=== PATIENT | female | born 1950 | race Caucasian/White ===

== ENCOUNTER 2020-02-28 13:22 | Outpatient (CLI) | payer MEDICARE, SELFPAY ==
--- NOTE | 2020-02-28 13:38 | XR_ITS ---
WS: [id number] EXAM: LEFT FOOT: 3 VIEWS DATE OF EXAMINATION: 02/28/2020, 1417 hours COMPARISON: None. HISTORY: 69 years old with foot pain status post fall. Redness and swelling to the foot. FINDINGS: Bone density is decreased. There are findings of slight arthritis at the first metatarsal phalangeal joint with slight bunion formation off the first metatarsal head without extensive hallux valgus defo rmity. No acute fracture is identified. Heel spur plantar aponeurosis insertion. Slight dorsal soft t issue swelling as well as soft tissue swelling of the lower leg demonstrated. Calcifications is soft tissue in the lower leg anteriorly most likely related to venous stasis changes. XR/XR foot LT min 3V* [id number] IMPRESSION: Scattered changes of arthritis as described. Soft tissue edema. No acute bony a bnormality.
--- NOTE | 2020-02-28 13:38 | USCV_ITS ---
Kalani Tate Age: 69 Gender: F : 1950 Exam Date: 02/28/2020 13:52 Ordering Phys: More Guerrero Technologist: MONICA LITTLEJOHN Exam Location: [facility] [place]_ Indication: fall PROCEDURES: Venous duplex imaging was performed in only the left lower extremity. The following venous structures were evaluated: common femoral vein, profunda vein, proximal portion of the greater saphenous vein, superficial femoral vein, and the popliteal vein. In addition, the posterior tibial and peroneal trunk were evaluated. Serial compression, augmentation maneuvers, and spectral Doppler flow evaluation were performed. FINDINGS: Normal 2-D Doppler and augmentation and compressibility throughout the lower extremity venous structures. Additional imaging through the proximal calf veins also reveals no thrombus. Limited evaluation of the greater saphenous vein is patent with no thrombus.. In the area of the left medial ankle there is shadowing noted which is probably calcum. Complex elongated fluid collection posterior to the knee measures 5 x 4 cm, nonvascular. CONCLUSIONS No DVT left lower extremity. Resolving hematoma vs Bakers cyst. Dr. Padmini Mcdermott DO (Electronically Signed) Final Date: 28 February 2020 15:07 S
== END 2020-02-28 13:23 | disposition home or self-care (01) ==
LOC: RAD 13:32
PROVIDERS: PCP Registered Nurse; Visit Provider Registered Nurse
DX: M79.672 Pain in left foot (principal); L03.116 Cellulitis of left lower limb; S80.12XA Contusion of left lower leg, initial encounter; W19.XXXA Unspecified fall, initial encounter
CPT/HCPCS: 73630; 93971

== ENCOUNTER 2020-11-27 20:00 | Outpatient (CLI) | payer MEDICARE, SELFPAY | END 2020-11-27 20:01 | disposition home or self-care (01) | LOC: SLEEP 11-28 10:49 | PROVIDERS: PCP Registered Nurse; Visit Provider Registered Nurse | DX: G47.33 Obstructive sleep apnea (adult) (pediatric) (principal) | CPT/HCPCS: 95810 ==

== ENCOUNTER → 2022-03-07 13:33 | Outpatient (BNVA) | payer MEDICARE, SELFPAY | PROVIDERS: PCP Nurse Practitioner Family; Visit Provider Nurse Practitioner | DX: R26.81 Unsteadiness on feet (principal); R41.89 Other symptoms and signs involving cognitive functions and awareness | CPT/HCPCS: 99203; 99204 ==

== ENCOUNTER → 2022-08-21 10:56 | Outpatient (BNVA) | payer SELFPAY | PROVIDERS: PCP Family Medicine; Visit Provider Family Medicine | DX: Z13.6 Encounter for screening for cardiovascular disorders (principal) | CPT/HCPCS: 80061; 82947; 83036 ==

== ENCOUNTER → 2022-10-15 08:49 | Outpatient (BNVA) | payer MEDICARE, SELFPAY | PROVIDERS: PCP Family Medicine; Visit Provider Nurse Practitioner | DX: G31.84 Mild cognitive impairment of uncertain or unknown etiology (principal) | CPT/HCPCS: 36415; 80053; 82607; 84443; 85025; 96116; 99213 ==

== ENCOUNTER → 2022-12-11 09:10 | Outpatient (BNVA) | payer MEDICARE, SELFPAY | PROVIDERS: PCP Family Medicine; Visit Provider Nurse Practitioner Family | DX: I96 Gangrene, not elsewhere classified (principal); L97.812 Non-pressure chronic ulcer of other part of right lower leg with fat layer exposed | CPT/HCPCS: 11042; 99213; A6212 ==

== ENCOUNTER → 2022-12-16 15:32 | Outpatient (BNVA) | payer MEDICARE, SELFPAY | PROVIDERS: PCP Family Medicine; Visit Provider Nurse Practitioner Family | DX: I96 Gangrene, not elsewhere classified (principal); L97.812 Non-pressure chronic ulcer of other part of right lower leg with fat layer exposed | CPT/HCPCS: 11042 ==

== ENCOUNTER → 2022-12-23 14:19 | Outpatient (BNVA) | payer MEDICARE, SELFPAY | PROVIDERS: PCP Family Medicine; Visit Provider Nurse Practitioner Family | DX: I96 Gangrene, not elsewhere classified (principal); L89.893 Pressure ulcer of other site, stage 3 | CPT/HCPCS: 11042; A6212 ==

== ENCOUNTER → 2022-12-30 14:05 | Outpatient (BNVA) | payer MEDICARE, SELFPAY | PROVIDERS: PCP Family Medicine; Visit Provider Nurse Practitioner Family | DX: I96 Gangrene, not elsewhere classified (principal); L89.893 Pressure ulcer of other site, stage 3 | CPT/HCPCS: 11042; A6212 ==

== ENCOUNTER → 2023-01-06 15:10 | Outpatient (BNVA) | payer MEDICARE, SELFPAY | PROVIDERS: PCP Family Medicine; Visit Provider Nurse Practitioner Family | DX: I96 Gangrene, not elsewhere classified (principal); L89.893 Pressure ulcer of other site, stage 3 | CPT/HCPCS: 11042 ==

== ENCOUNTER → 2023-01-20 14:22 | Outpatient (BNVA) | payer MEDICARE, SELFPAY | PROVIDERS: PCP Family Medicine; Visit Provider Nurse Practitioner Family | DX: I96 Gangrene, not elsewhere classified (principal); L89.893 Pressure ulcer of other site, stage 3 | CPT/HCPCS: 97597; A6210 ==

== ENCOUNTER → 2023-01-22 08:56 | Outpatient (BNVA) | payer MEDICARE, SELFPAY | PROVIDERS: PCP Family Medicine; Referring Provider Nurse Practitioner Family; Visit Provider Psychiatry & Neurology Neurology | DX: R41.3 Other amnesia (principal); R93.0 Abnormal findings on diagnostic imaging of skull and head, not elsewhere classified; I10 Essential (primary) hypertension; E78.5 Hyperlipidemia, unspecified | CPT/HCPCS: 99204 ==

== ENCOUNTER → 2023-01-27 15:06 | Outpatient (BNVA) | payer MEDICARE, SELFPAY | PROVIDERS: PCP Family Medicine; Visit Provider Nurse Practitioner Family | DX: I96 Gangrene, not elsewhere classified (principal); L89.893 Pressure ulcer of other site, stage 3 | CPT/HCPCS: 97597; A6210 ==

== ENCOUNTER → 2023-02-03 15:55 | Outpatient (BNVA) | payer MEDICARE, SELFPAY | PROVIDERS: PCP Family Medicine; Visit Provider Nurse Practitioner Family | DX: I96 Gangrene, not elsewhere classified (principal); L89.893 Pressure ulcer of other site, stage 3 | CPT/HCPCS: 97597; A6212 ==

== ENCOUNTER 2023-02-04 13:11 | Outpatient (CLI) | payer MEDICARE, SELFPAY ==
--- NOTE | 2023-02-04 13:00 | USCV_ITS ---
Kalani Tate Age: 72 Gender: F : 1950 Exam Date: 02/04/2023 13:52 Ordering Phys: Luis Enrique Dugan MD Technologist: CT [place]am [place] [facility] [place] Indication: Risk Factors: Previous Vascular Surgery: Right Brachial BP: / Left Brachial BP: / Right Left Velocity (cm/s) Spectral Plaque Velocity (cm/s) Spectral Plaque Syst/Diast Broadening Syst/Diast Broadening 93.70/ 16.50 Prox CCA 67.70 / 11.10 79.40/ 17.60 Mid CCA 74.30 / 16.70 56.30/ 10.20 Distal CCA 75.30 / 19.05 42.90/ 11.50 Prox ICA 59.30 / 12.00 59.70/ 17.30 Mid ICA 73.80 / 19.60 66.40/ 22.10 Distal ICA 59.70 / 14.10 70.50 ECA 102.10 0.72 ICA/CCA 0.90 Antegrade Vertebral Antegrade 40.60/ 9.20 cm/s 49.20/ 11.90 cm/s Bi Subclavian Bi 73.20 102.1 0 CONCLUSIONS Right ICA stenosis <50%. Left ICA stenosis <50%. Intimal thickening in the common carotid arteries and internal carotid arteries bilaterally. Normal antegrade Doppler flow noted in the right vertebral artery. Normal antegrade Doppler flow noted in the left vertebral artery. Ravi Beebe MD (Electronically Signed) Final Date: 05 February 2023 09:50 S
== END 2023-02-04 13:12 | disposition home or self-care (01) ==
PROVIDERS: PCP Family Medicine; Visit Provider Psychiatry & Neurology Neurology
DX: I77.89 Other specified disorders of arteries and arterioles (principal); F09 Unspecified mental disorder due to known physiological condition; R26.81 Unsteadiness on feet; R26.89 Other abnormalities of gait and mobility; R41.3 Other amnesia; Z82.49 Family history of ischemic heart disease and other diseases of the circulatory system
CPT/HCPCS: 36415; 82306; 83090; 83735; 83921; 85651; 86140; 86160; 86162; 86235; 86255; 86376; 86431; 93880

== ENCOUNTER → 2023-02-10 14:23 | Outpatient (BNVA) | payer MEDICARE, SELFPAY | PROVIDERS: PCP Family Medicine; Visit Provider Nurse Practitioner Family | DX: I96 Gangrene, not elsewhere classified (principal); L89.893 Pressure ulcer of other site, stage 3 | CPT/HCPCS: 97597; A6210; A6220 ==

== ENCOUNTER → 2023-02-24 14:25 | Outpatient (BNVA) | payer MEDICARE, SELFPAY | PROVIDERS: PCP Family Medicine; Visit Provider Nurse Practitioner Family | DX: I96 Gangrene, not elsewhere classified (principal); L89.893 Pressure ulcer of other site, stage 3 | CPT/HCPCS: 97597; A6210 ==

== ENCOUNTER → 2023-03-02 10:01 | Outpatient (BNVA) | payer MEDICARE, SELFPAY | PROVIDERS: PCP Family Medicine; Visit Provider Internal Medicine | DX: M81.0 Age-related osteoporosis without current pathological fracture (principal); R76.8 Other specified abnormal immunological findings in serum; R53.83 Other fatigue; R06.9 Unspecified abnormalities of breathing; D64.9 Anemia, unspecified; R26.81 Unsteadiness on feet | CPT/HCPCS: 36415; 81001; 82306; 82533; 82607; 82728; 83516; 83540; 84425; 84439; 84443; 85651; 86140; 86160; 86162; 86200; 86235; 86255; 86376; 86431; 86704; 86803; 87340; 87522; 99204 ==

== ENCOUNTER → 2023-03-03 14:00 | Outpatient (BNVA) | payer MEDICARE, SELFPAY | PROVIDERS: PCP Family Medicine; Visit Provider Nurse Practitioner Family | DX: I96 Gangrene, not elsewhere classified (principal); L89.893 Pressure ulcer of other site, stage 3 | CPT/HCPCS: 97597; A6210 ==

== ENCOUNTER → 2023-03-10 14:41 | Outpatient (BNVA) | payer OTHER, SELFPAY ==
[2023-07-24 10:03] VITALS: BP 153/80; BMI 25.4
== END ==
PROVIDERS: PCP Family Medicine; Visit Provider Nurse Practitioner Family
DX: I96 Gangrene, not elsewhere classified (principal); L97.811 Non-pressure chronic ulcer of other part of right lower leg limited to breakdown of skin
CPT/HCPCS: 97597; A6212

== ENCOUNTER → 2023-03-11 10:17 | Outpatient (BNVA) | payer MEDICARE, SELFPAY | PROVIDERS: PCP Family Medicine; Visit Provider Internal Medicine Cardiovascular Disease | DX: R07.9 Chest pain, unspecified (principal); I49.3 Ventricular premature depolarization; E88.01 Alpha-1-antitrypsin deficiency; I10 Essential (primary) hypertension; E78.5 Hyperlipidemia, unspecified; Z87.891 Personal history of nicotine dependence | CPT/HCPCS: 93005; 99204 ==

== ENCOUNTER → 2023-03-17 14:43 | Outpatient (BNVA) | payer MEDICARE, SELFPAY | PROVIDERS: PCP Family Medicine; Visit Provider Nurse Practitioner Family | DX: I96 Gangrene, not elsewhere classified (principal); L89.893 Pressure ulcer of other site, stage 3 | CPT/HCPCS: 97597; A6212 ==

== ENCOUNTER → 2023-03-24 14:14 | Outpatient (BNVA) | payer MEDICARE, SELFPAY | PROVIDERS: PCP Family Medicine; Visit Provider Nurse Practitioner Family | DX: I96 Gangrene, not elsewhere classified (principal); L89.893 Pressure ulcer of other site, stage 3 | CPT/HCPCS: 97597; A6251 ==

== ENCOUNTER → 2023-03-26 14:34 | Outpatient (BNVA) | payer MEDICARE, SELFPAY | PROVIDERS: PCP Family Medicine; Visit Provider Nurse Practitioner Family | DX: L97.812 Non-pressure chronic ulcer of other part of right lower leg with fat layer exposed (principal) | CPT/HCPCS: 29581 ==

== ENCOUNTER → 2023-03-30 16:54 | Outpatient (BNVA) | payer MEDICARE, SELFPAY | PROVIDERS: PCP Family Medicine; Visit Provider Internal Medicine Pulmonary Disease | DX: R06.02 Shortness of breath (principal); J82.83 Eosinophilic asthma; E88.01 Alpha-1-antitrypsin deficiency; Z87.891 Personal history of nicotine dependence; R76.0 Raised antibody titer | CPT/HCPCS: 71046; 99204 ==

== ENCOUNTER → 2023-04-02 14:41 | Outpatient (BNVA) | payer MEDICARE, SELFPAY | PROVIDERS: PCP Family Medicine; Visit Provider Nurse Practitioner Family | DX: Z09 Encounter for follow-up examination after completed treatment for conditions other than malignant neoplasm (principal) | CPT/HCPCS: 99212 ==

== ENCOUNTER → 2023-04-08 09:52 | Outpatient (BNVA) | payer MEDICARE, SELFPAY | PROVIDERS: PCP Family Medicine; Visit Provider Internal Medicine | DX: M81.0 Age-related osteoporosis without current pathological fracture (principal); R76.8 Other specified abnormal immunological findings in serum; R53.83 Other fatigue; R06.9 Unspecified abnormalities of breathing; D64.9 Anemia, unspecified | CPT/HCPCS: 99214 ==

== ENCOUNTER → 2023-04-22 14:02 | Outpatient (BNVA) | payer MEDICARE, SELFPAY | PROVIDERS: PCP Family Medicine; Visit Provider Psychiatry & Neurology Neurology | DX: G31.84 Mild cognitive impairment of uncertain or unknown etiology (principal); R41.3 Other amnesia | CPT/HCPCS: 0346U; 82542; 99212 ==

== ENCOUNTER → 2023-07-01 11:32 | Outpatient (BNVA) | payer OTHER, SELFPAY | PROVIDERS: PCP Family Medicine; Visit Provider Psychiatry & Neurology Psychiatry | DX: F41.1 Generalized anxiety disorder (principal); Z79.899 Other long term (current) drug therapy | CPT/HCPCS: 80061; 83036 ==

== ENCOUNTER → 2023-08-13 12:05 | Outpatient (BNVA) | payer MEDICARE, SELFPAY ==
[2023-07-24 10:03] VITALS: BP 153/80; BMI 25.4
== END ==
PROVIDERS: PCP Family Medicine; Visit Provider Psychiatry & Neurology Neurology
DX: G31.84 Mild cognitive impairment of uncertain or unknown etiology (principal); I10 Essential (primary) hypertension; Z87.891 Personal history of nicotine dependence
CPT/HCPCS: 99212

== ENCOUNTER → 2023-09-21 12:07 | Outpatient (BNVA) | payer MEDICARE, SELFPAY ==
[2023-07-24 10:03] VITALS: BP 153/80; BMI 25.4
== END ==
PROVIDERS: PCP Family Medicine; Visit Provider Internal Medicine Cardiovascular Disease
DX: I10 Essential (primary) hypertension (principal); E78.5 Hyperlipidemia, unspecified; I49.3 Ventricular premature depolarization; F41.1 Generalized anxiety disorder; Z87.891 Personal history of nicotine dependence
CPT/HCPCS: 99213

== ENCOUNTER → 2023-11-10 14:34 | Outpatient (BNVA) | payer MEDICARE, SELFPAY ==
[2023-07-24 10:03] VITALS: BP 153/80; BMI 25.4
== END ==
PROVIDERS: PCP Family Medicine; Visit Provider Psychiatry & Neurology Neurology
DX: G31.84 Mild cognitive impairment of uncertain or unknown etiology (principal); I10 Essential (primary) hypertension; Z87.891 Personal history of nicotine dependence
CPT/HCPCS: 99212

== ENCOUNTER 2024-03-12 19:23 | Inpatient (IN) | payer MEDICARE, SELFPAY ==
[2023-07-24 10:03] VITALS: BP 153/80; BMI 25.4
[2024-03-12 19:31] VITALS: BP 127/75; PULSE 79; RESP 18; TEMP 36.7; O2SAT 95; BMI 26.6
--- NOTE | 2024-03-12 19:38 | XRR_ITS ---
PROCEDURE INFORMATION: Exam: XR Left Hip Exam date and time: 03/12/2024 7:50 PM Age: 73 years old Clinical indication: Left hip; Patient HX: Lt hip pain post fall TECHNIQUE: Imaging protocol: Radiologic exam of the left hip. Views: 2 or 3 views hip with pelvis when performed. COMPARISON: No relevant prior studies available. FINDINGS: Bones/joints: There is transverse fracture of the left femoral neck with varus deformity. Soft tissues: Unremarkable. XR/XR hip LT 2-3V wo/w pel* [id number] IMPRESSION: There is transverse fracture of the left femoral neck with varus deformity.
--- NOTE | 2024-03-12 20:03 | XRR_ITS ---
PROCEDURE INFORMATION: Exam: XR Chest Exam date and time: 03/12/2024 7:56 PM Age: 73 years old Clinical indication: Pre-operative exam; Respiratory screening exam; Patient HX: Pre op high risk procedure; Copd; Asthma TECHNIQUE: Imaging protocol: Radiologic exam of the chest. Views: 1 view. COMPARISON: CR XR chest 2V* [id number] 03/30/2023 4:58 PM FINDINGS: Lungs: Unremarkable. No consolidation. Pleural spaces: Unremarkable. No pleural effusion. No pneumothorax. Heart/Mediastinum: Unremarkable. No cardiomegaly. Bones/joints: Scoliosis and chronic deformity of the right humeral head. XR/XR chest 1V portable [id number] IMPRESSION: No acute findings.
--- NOTE | 2024-03-12 20:23 | ECG_ITS ---
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 Measurements Intervals [place] Rate: 79 P: 79 HI: 162 QRS: -18 QRSD: 93 T: 63 QT: 360 QTc: 414 Interpretive Statements SINUS RHYTHM SEPTAL MYOCARDIAL INFARCTION , OF INDETERMINATE AGE [40+ ms Q WAVE IN V1/V2] Compared to ECG 03/11/2023 10:22:28 Myocardial infarct finding now present Ventricular premature complex(es) no longer present Electronically Signed On 03-12-2024 21:53:20 CDT by Hernan Canela M.D. [email or web address]
--- NOTE | 2024-03-12 20:31 | ED_ITS ---
HPI - Trauma 2 General: Chief Complaint: Trauma Stated Complaint: fall, left hip pain Time Seen by Provider: 03/12/24 19:25 History of Present Illness: 73-year-old female who got up from a sit ting position at work. She believes her leg must of fallen asleep while sitting, as she stumbled and fell onto her left hip. She did not hit her head. No other injury. She presents with hip pain and deformity. Related Data Home Medications Medication Instructions Recorded Confirmed aspirin 325 mg capsule 325 mg PO DAILY 03/07/22 11/26/23 multivitamin (Multiple Vitamins 1 tab PO DAILY 03/07/22 11/26/23 tablet) turmeric 100 mg-larissa 150 cap PO 03/07/22 11/26/23 mg-olive 50 mg-oreg 150 mg-capryl capsule ezetimibe 10 mg tablet (Zetia) 10 mg PO DAILY 10/15/22 11/26/23 ascorbic acid (vitamin C) 500 mg 500 mg PO DAILY 03/11/23 11/26/23 tablet cholecalciferol (vitamin D3) 50 50 mcg PO DAILY 03/11/23 11/26/23 mcg (2,000 unit) capsule lisinopril 2.5 mg tablet 10 mg PO DAILY 03/11/23 11/26/23 Previous Rx's Medication Instructions Recorded fluticasone 250 mcg-salmeterol 50 1 inh inhalation BID #60 ea 06/15/23 mcg/dose blistr powdr for inhalation (Advair Diskus) fluoxetine 40 mg capsule 40 mg PO DAILY #30 caps 11/05/23 donepezil 10 mg tablet 10 mg PO DAILY #30 tabs 11/10/23 duloxetine 30 mg capsule,delayed 30 mg PO DAILY #30 caps 11/26/23 release (Cymbalta) donepezil 5 mg tablet 5 mg PO DAILY #30 tabs 01/19/24 Allergies Allergy/AdvReac Type Severity Reaction Status Date / Time No Known Allergies Allergy Verified 11/26/23 11:42 PFS ED 2 PFSH: Medical History Xjnbf-1-wbzlwgiznqd deficiency Hyperlipidemia HTN (hypertension) Bursitis Hx of cataract bilateral Anxiety Asthma Cognitive disorder Gait instability Balance disorder Psychiatric care Surgical History Hx of hysterectomy Hx of sinus surgery x2 Hx of colonoscopy Family History Mother Congestive heart failure (CHF) Hypertension Father Congestive heart failure (CHF) Stroke Hypertension Social History Smoking and tobacco/nicotine status: former use of tobacco/nicotine Quit status (tobacco/nicotine): has quit using Year quit tobacco: 1986 Former quit date comment: 0.25ppd X 17 years Alcohol intake: never Physical Exam 2 Const: COMMON NORMALS: no acute distress GENERAL APPEARANCE: cooperative; not ill appearing and not frail appearing HENMT: COMMON NORMALS: normocephalic, atraumatic and Normal external nose present HEAD & SCALP: normocephalic and atraumatic FACE & SINUS: normal facial exam and face symmetric NOSE: Normal external nose present Eye: COMMON NORMALS: Equal, round and reactive pupils present and EOMs intact bilaterally PUPIL: Yes Equal, round and reactive pupils present Neck/C-Spine: GENERAL: Yes trachea midline Chest: CHEST: Yes Symmetrical chest wall rise Resp: COMMON NORMALS: normal respiratory effort, No retractions, No use of accessory muscles and clear to auscultation bilaterally AUSCULTATION: clear to auscultation bilaterally Cardio: COMMON NORMALS: regular rate and regular rhythm RATE: regular rate RHYTHM: regular rhythm GI: COMMON NORMALS: Normal to inspection, nondistended, normoactive bowel sounds present Extremity: COMMON NORMALS: no pedal edema NARRATIVE EXTREMITY EXAM: Exam the left lower extremity reveals external rotation and shortening. She has significant pain on logroll testing. Minimal tenderness. Pulses and sensation are intact distally. Neuro: CARMINE COMA SCALE: document GCS findings [place] coma scale eye opening: Spontaneous [place] coma scale verbal response: Orientated [place] coma scale motor response: Obey commands Carmine coma scale total score: 15 S ENSORY EXAM: Yes extremities (intact) Psych: COMMON NORMALS: speech normal SPEECH: Yes normal speech Skin: COMMON NORMALS: no rashes or lesions noted GENERAL SKIN EXAM: no rashes or lesions noted Course 2 Vital Signs: Vital signs: Vital Signs Temperature 97.7 F 03/12/24 22:46 Pulse Rate 71 03/12/24 22:46 Respiratory Rate 13 03/12/24 22:46 Blood Pressure 134/85 03/12/24 22:46 Pulse Oximetry 91 03/12/24 22:46 Oxygen Delivery Me thod Room Air 03/12/24 22:46 MDM - Trauma Medical Decision Making X-ray of the hip reveals a subcapital femoral neck fracture. Mildly superiorly displaced. Chest x-ray reveals scoliotic changes without acute abnormality. Laboratories pending. We have a call out to orthopedics and the hospitalist team Orthopedic surgeon has agreed to consult. Hospitalist agreed to admit. He will see the patient in the ER. CBC and BMP are not terribly remarkable. Hines has been ordered. Lab Data 03/12/24 20:51 03/12/24 20:51 Radiology Impressions Hip/Pelvis X-Ray 03/12/24 19:38 IMPRESSION: There is transverse fracture of the left femoral neck with varus deformity. Chest X-Ray 03/12/24 20:03 IMPRESSION: No acute findings. All radiology interpretation(s) finalized by discharge Discharge Plan Discharge Patient Disposition: Admitted As Inpatient Admit Provider: Haris Calloway Clinical Impression: Closed fracture of neck of left femur Condition: Stable Coding Level of Care Code ED [employer]er for Malena Delcid
--- NOTE | 2024-03-12 20:56 | P.HP_ITS ---
Providers/Chief Complaint Primary Care Provider: Hetal Mccarty DO Chief Complaint: fall, left hip pain History of Present Illness Kalani Tate is a 73 year old female with a past medical history significant for osteoporosis, hyperlipidemia, hypertension, short-term memory loss, and multiple other comorbidities who presents to the emergency department after mechanical fall at work. Patient states she was getting up from her chair and it felt like her leg was asleep. She subsequently fell onto her left side. After her fall, she had significant left hip pain. She describes the pain initially severe. She received analgesics prior to my evaluation. She currently rates her pain 3 out of 10. Movement exacerbates pain. Rest improves. Denies other alleviating or aggravating factors. In the emergency department, patient was found to have left hip fracture. Orthopedic surgery has been consulted. Patient denies prior adverse effects to anesthesia. Family is bedside and supportive. Review of Systems Narrative: A complete review of systems was obtained and is negative except as stated in HPI. Medications/Allergies Home Medications Medication Instructions Recorded Confirmed Last Taken Type aspirin 325 mg capsule 325 mg PO DAILY 03/07/22 11/26/23 Unknown History multivitamin (Multiple Vitamins 1 tab PO DAILY 03/07/22 11/26/23 Unknown History tablet) turmeric 100 mg-larissa 150 cap PO 03/07/22 11/26/23 Unknown History mg-olive 50 mg-oreg 150 mg-capryl capsule ezetimibe 10 mg tablet (Zetia) 10 mg PO DAILY 10/15/22 11/26/23 Unknown History ascorbic acid (vitamin C) 500 mg 500 mg PO DAILY 03/11/23 11/26/23 Unknown History tablet cholecalciferol (vitamin D3) 50 50 mcg PO DAILY 03/11/23 11/26/23 Unknown History mcg (2,000 unit) capsule lisinopril 2.5 mg tablet 10 mg PO DAILY 03/11/23 11/26/23 Unknown History fluticasone 250 mcg-salmeterol 50 1 inh inhalation BID #60 ea 06/15/23 11/26/23 Unknown Rx mcg/dose blistr powdr for inhalation (Advair Diskus) fluoxetine 40 mg capsule 40 mg PO DAILY #30 caps 11/05/23 11/26/23 Unknown Rx donepezil 10 mg tablet 10 mg PO DAILY #30 tabs 11/10/23 11/26/23 Unknown Rx duloxetine 30 mg capsule,delayed 30 mg PO DAILY #30 caps 11/26/23 11/26/23 Unknown Rx release (Cymbalta) donepezil 5 mg tablet 5 mg PO DAILY #30 tabs 01/19/24 Unknown Rx Allergies Allergy/AdvReac Type Severity Reaction Status Date / Time No Known Allergies Allergy Verified 11/26/23 11:42 PFSH Acute PFSH: Medical History Mjmlq-7-ptupsoloqos deficiency Hyperlipidemia HTN (hypertension) Bursitis Hx of cataract bilateral Anxiety Asthma Cognitive disorder Gait instability Balance disorder Psychiatric care Surgical History Hx of hysterectomy Hx of sinus surgery x2 Hx of colonoscopy Family History Mother Congestive heart failure (CHF) Hypertension Father Congestive heart failure (CHF) Stroke Hypertension Social History Smoking and tobacco/nicotine status: former use of tobacco/nicotine Quit status (tobacco/nicotine): has quit using Year quit tobacco: 1986 Former quit date comment: 0.25ppd X 17 years Alcohol intake: never Vitals/I&O/Wt Last Vital Signs Temp 98.0 F 03/12/24 19:31 Pulse 79 03/12/24 19:31 Resp 18 03/12/24 19:31 BP 127/75 03/12/24 19:31 Pulse Ox 95 03/12/24 19:31 Weight last 48 hrs Weight 72.575 kg Physical Exam Narrative: General: Patient is awake and alert. Pleasant. Head: Normocephalic. Atraumatic. EOM intact. Neck: No JVD. Cardiovascular: RRR. No gallops. No murmurs. No peripheral edema. Lungs: Clear to auscultation, no use of accessory muscles, no crackles or wheezes. Skin: No jaundice. No rashes. Abdomen: Normal bowel sounds, abdomen soft and nontender. Genito Urinary: Genital exam not performed since complaints not related. Rectal: Rectal exam not performed since no symptoms indicated blood loss. Extremities: No cyanosis or clubbing. Musculoskeletal: Left lower extremity is shorter and externally rotated. Neurological: Moves all 4 extremities. No myoclonus. A&P Assessment and plan (1) Hip fracture: Left-sided hip fracture Orthopedic surgery consulted, appreciate recommendations EKG, chest x-ray, type and screen N.p.o. 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 Coding Level of Care Code Acute Code for [facility] Fwd Diagnoses Hip fracture S72.009A Eosinophilic asthma J82.83 HTN (hypertension) I10 Major depressive disorder, recurrent, moderate F33.1 Generalized anxiety disorder F41.1
[2024-03-12 21:05] LABS: Basophils # 0.1 10^3/uL (0.0-0.1); Basophils % 0.8 %; Eosinophils # 0.6 10^3/uL (0.0-0.8); Eosinophils % 5.7 %; Hematocrit 44.2 % (36-47); Lymphocytes # 1.2 10^3/uL (0.8-4.8); Lymphocytes % 11.3 %; Mean Corpuscular HGB Conc 31.9 g/dL (30-55); Mean Corpuscular Hemoglobin 29.7 pg (27-33); Mean Corpuscular Volume 93.1 fl (85-98); Mean Platelet Volume 11.1 fL (7.4-10.4); Monocytes # 0.7 10^3/uL (0.2-0.9); Monocytes % 6.3 %; Neutrophils % 75.4 %; Nucleated Red Blood Cells % 0 %; Platelet Count 144 10^3/cmm (157-399); Red Blood Count 4.75 10^6/uL (3.85-5.65); Red Cell Distribution Width 12.4 % (12.1-15.1); White Blood Count 10.61 10^3/uL (3.29-11.43)
[2024-03-12 21:31] LABS: Alanine Aminotransferase 24 U/L (0-33); Albumin Level 4.2 g/dL (3.5-5.2); Alkaline Phosphatase 113 U/L (35-105); Anion Gap 16.1 (5-19); Aspartate Amino Transferase 31 U/L (0-32); Blood Urea Nitrogen 20 mg/dL (8-23); Calcium 9.3 mg/dL (8.5-10.5); Carbon Dioxide 24 mmol/L (22-29); Chloride 106 mmol/L (98-107); Creatinine Clr Calc Pharmacy 55.5702; Globulin 2.5 g/dL (1.3-4.6); Glucose 154 mg/dL (65-115); NT Pro B Type Natriuretic Pept 151 pg/mL (0-125); Osmolality Calculated 300 mOsm/kg (285-295); Potassium 4.1 mmol/L (3.5-5.1); Sodium 142 mmol/L (136-145); Total Bilirubin 0.2 mg/dL (0.15-1.2); Total Protein 6.7 g/dL (6.6-8.7)
[2024-03-12 21:34] VITALS: BP 146/68; PULSE 73; RESP 18; O2SAT 94
--- NOTE | 2024-03-12 21:37 | P.CONIM_ITS ---
Providers/Reason For Consult 2 Consulting Physician/Specialty*: Yaa Billingsley MD Reason for Consult*: Left Subcapital Hip Fracture Requesting Physician: Berry Negrete DO Attending Physician: Haris Calloway MD Primary Care Provider: Hetal Mccarty DO History of Present Illness History of Present Illness Kalani Tate is a 73 year old female who was in her usual state of health when she got up from a chair at work. She notes her left foot was asleep and she fell onto her left side. She was unable to ambulate, and an ambulance was called. She was brought to the emergency department where she was found to have a left subcapital displaced hip fracture. Other medical history includes osteoporosis, hyperlipidemia, short-term memory loss, and hypertension. Review of Systems 2 Narrative: A complete review of systems was obtained and is negative except as stated in HPI. Eyes: Denies: photophobia All/Imm: Denies: acute wheezing Medications/Allergies Home Medications Medication Instructions Recorded Confirmed Last Taken Type aspirin 325 mg capsule 325 mg PO DAILY 03/07/22 03/13/24 03/12/24 10:00 History multivitamin (Multiple Vitamins 1 tab PO DAILY 03/07/22 03/13/24 03/12/24 10:00 History tablet) turmeric 100 mg-larissa 150 1 cap PO DAILY 03/07/22 03/13/24 03/12/24 10:00 History mg-olive 50 mg-oreg 150 mg-capryl capsule ezetimibe 10 mg tablet (Zetia) 10 mg PO DAILY 10/15/22 03/13/24 03/12/24 10:00 History ascorbic acid (vitamin C) 500 mg 500 mg PO DAILY 03/11/23 03/13/24 03/12/24 10:00 History tablet cholecalciferol (vitamin D3) 50 50 mcg PO DAILY 03/11/23 03/13/24 03/12/24 10:00 History mcg (2,000 unit) capsule lisinopril 2.5 mg tablet 10 mg PO DAILY 03/11/23 03/13/24 03/12/24 10:00 History duloxetine 30 mg capsule,delayed 30 mg PO DAILY #30 caps 11/26/23 03/13/24 03/12/24 10:00 Rx release (Cymbalta) albuterol sulfate 90 mcg/actuation 1 inh inhalation Q6H PRN short of 03/13/24 03/13/24 Unknown History aerosol inhaler breath donepezil 10 mg tablet 10 mg PO BEDTIME 03/13/24 03/13/24 03/11/24 21:00 History fluticasone fur. 200 mcg-umeclid 1 inh inhalation DAILY 03/13/24 03/13/24 03/12/24 10:00 History 62.5 mcg-vilant 25 mcg inhalat.powder (Trelegy Ellipta) Allergies Allergy/AdvReac Type Severity Reaction Status Date / Time No Known Allergies Allergy Verified 11/26/23 11:42 PFSH Acute 2 PFSH: Medical History Zdnhd-0-xxrzxfgdwxo deficiency Hyperlipidemia HTN (hypertension) Bursitis Hx of cataract bilateral Anxiety Asthma Cognitive disorder Gait instability Balance disorder Psychiatric care Surgical History Hx of hysterectomy Hx of sinus surgery x2 Hx of colonoscopy Family History Mother Congestive heart failure (CHF) Hypertension Father Congestive heart failure (CHF) Stroke Hypertension Social History Smoking and tobacco/nicotine status: former use of tobacco/nicotine Quit status (tobacco/nicotine): has quit using Year quit tobacco: 1986 Former quit date comment: 0.25ppd X 17 years Alcohol intake: never Dietary Habits: Current diet type/program: regular Caffeine: Yes Vitals/I&O/Wt Last Vital Signs Temp 98.0 F 03/12/24 19:31 Pulse 79 03/12/24 19:31 Resp 18 03/12/24 19:31 BP 127/75 03/12/24 19:31 Pulse Ox 95 03/12/24 19:31 Weight last 48 hrs Weight 160 lb Physical Exam 2 Const: COMMON NORMALS: no acute distress, average body habitus, patient oriented x3 and alert GENERAL APPEARANCE: cooperative and comfortable O RIENTATION/CONSCIOUSNESS: Yes awake HENMT: COMMON NORMALS: normocephalic and atraumatic HEAD & SCALP: n ormocephalic and atraumatic Eye: GENERAL EYE: appearance normal, both eyes and all related structures Chest: COMMONS NORMALS: normal inspection of the chest Resp: COMMON NORMALS: normal respiratory effort EFFORT & INSPECTION: Yes able to speak in complete sentences and Yes symmetric chest movement Extremity: LEFT LOWER EXTREMITY: Yes hip joint (No significant swelling.) Left hip: Yes inspection (Shortened and externally rotated.), Yes ROM (Not evaluated secondary to fracture) and Yes neurovascular exam (Intact distally) Neuro: COMMON NORMALS: patient oriented x3 SENSORIUM/ORIENTATION: Yes alert Psych: COMMON NORMALS: mental status grossly normal APPEARANCE: Yes grossly normal ATTITUDE: Yes calm and Yes engaged ATTENTION/CONCENTRATION: Yes attention grossly intact Skin: COMMON NORMALS: no rashes or lesions noted GENERAL SKIN EXAM: no rashes or lesions noted Data 03/13/24 03:20 03/13/24 03:20 Xray Ortho: My impression: X-rays obtained of the left hip. There is a 100% displaced subcapital left hip fracture. No other fractures are noted. A&P Assessment and plan (1) Subcapital fracture of left hip: Patient is seen preoperatively. She is comfortable, alert, and oriented. Pain is well-controlled. The patient is advised that the fracture type that she has will require a hemiarthroplasty, and the risks and complications are discussed with her. Consents were signed and questions were answered. Qualifiers: Encounter type: initial encounter Fracture type: closed Qualified Code(s): S72.012A - Unspecified intracapsular fracture of left femur, initial encounter for closed fracture Consult Attestations 2 Medical Necessity Statement: Per medical service Coding Level of Care Code Acute Code for [facility] Diagnoses Closed subcapital fracture of left femur, initial encounter S72.012A Encounter type: initial encounter Fracture type: closed
[2024-03-12 22:13] LABS: Charge for UA Resulting for Rev
[2024-03-12 22:15] LABS: Bilirubin Urine Negative (Negative); Blood Urine Negative (Negative); Glucose Urine UA Negative (Normal); Ketones Urine Negative (Negative); Leukocyte Esterase Urine Trace (Negative); Nitrate Urine Negative (Negative); Protein Urine Negative (Negative); Specific Gravity, Urine 1.024 (1.005-1.030); Urine Appearance Clear (CLEAR); Urine Color Dark Yellow (Yellow); pH Urine 5.5 (5-7)
[2024-03-12 22:17] LABS: Bacteria Urine None Seen /hpf; Hyaline Casts Urine 2.05 /lpf; RBC Urine 0-2 /hpf (0-2); Squamous Epithelial Cell Urine 0-5 /hpf (0-5)
[2024-03-12 22:46] VITALS: BP 134/85; PULSE 71; RESP 13; TEMP 36.5; O2SAT 91
[2024-03-12] MEDS: lactated ringers 1,000 ML 100 ML IV (23:15)
[2024-03-12] MEDS: sennosides 8.6 mg Tablet 17.2 MG PO (23:15)
[2024-03-12] MEDS: acetaminophen 500 mg Tablet 1000 MG PO (23:15)
[2024-03-12 23:16] VITALS: RESP 13; O2SAT 91
[2024-03-12] MEDS: oxyCODONE 5 mg IR Tab/Cap PO (23:16)
[2024-03-13] VITALS (23 sets, daily range): BP systolic 100–147; BP diastolic 60–80; PULSE 71–110; RESP 13–24; TEMP 36.4–37.7; O2SAT 91–99
[2024-03-13] MEDS: HYDROmorphone 1 mg/mL INJ 1 mL 0.5 MG IVP ×2 (00:04→05:29)
[2024-03-13 03:33] LABS: Basophils # 0.1 10^3/uL (0.0-0.1); Basophils % 0.7 %; Eosinophils # 0.6 10^3/uL (0.0-0.8); Eosinophils % 5.4 %; Hematocrit 41.2 % (36-47); Lymphocytes # 1.5 10^3/uL (0.8-4.8); Lymphocytes % 13.5 %; Mean Corpuscular HGB Conc 31.8 g/dL (30-55); Mean Corpuscular Hemoglobin 29.4 pg (27-33); Mean Corpuscular Volume 92.6 fl (85-98); Mean Platelet Volume 10.9 fL (7.4-10.4); Monocytes # 0.9 10^3/uL (0.2-0.9); Monocytes % 7.9 %; Neutrophils # 7.82 10^3/uL (1.8-7.7); Neutrophils % 72.2 %; Nucleated Red Blood Cells % 0 %; Platelet Count 150 10^3/cmm (157-399); Red Blood Count 4.45 10^6/uL (3.85-5.65); Red Cell Distribution Width 12.4 % (12.1-15.1); White Blood Count 10.83 10^3/uL (3.29-11.43)
[2024-03-13 04:03] LABS: Anion Gap 16.4 (5-19); Blood Urea Nitrogen 19 mg/dL (8-23); Calcium 8.9 mg/dL (8.5-10.5); Carbon Dioxide 25 mmol/L (22-29); Chloride 108 mmol/L (98-107); Creatinine Clr Calc Pharmacy 64.5433; Glucose 113 mg/dL (65-115); Osmolality Calculated 303 mOsm/kg (285-295); Potassium 4.4 mmol/L (3.5-5.1); Sodium 145 mmol/L (136-145)
--- NOTE | 2024-03-13 05:54 | PC.NURSE ---
JEWELRY REMOVAL PREOP with pt permission 2 silver colored rings and beaded bracelet were removed during surgery prep and placed into a denture cup with pt label, then placed with the pts purse and other belongings in the bottom drawer of the nightstand.
[2024-03-13] MEDS: gabapentin 300 mg Capsule PO (07:01)
[2024-03-13] MEDS: CELEcoxib 200 mg Capsule 400 MG PO (07:01)
[2024-03-13] MEDS: acetaminophen 1,000 MG/100 ML PIGGYBACK 400 MG IV (07:29)
[2024-03-13] MEDS: ceFAZolin 2,000 mg SDV 2000 MG IVP ×2 (08:08→17:00)
[2024-03-13] MEDS: tranexamic acid 1,000 MG/100 ML PREMIX 600 MG IV ×2 (08:20→15:27)
--- NOTE | 2024-03-13 08:42 | P.ANESASSM_ITS ---
Pre-Anesthetic Assessment Height/Weight: Height 1.65 m Weight 77.564 kg Temp Pulse Resp BP Pulse Ox O2 Del Method O2 Flow Rate 98.7 F 81 20 H 128/69 96 Nasal Cannula 2 03/13/24 06:52 03/13/24 06:52 03/13/24 06:52 03/13/24 06:52 03/13/24 06:52 03/13/24 06:52 03/13/24 06:52 Operation Date: 03/13/24 08:30 Proposed Procedures p Left Bipolar Hip Arthroplasty(Left) - Yaa Billingsley MD Was Beta Michel taken within 24 hours: N/A Last intake: Intake Last Liquid Date 03/12/24 Last Liquid Time 23:30 Last Solid Date 03/12/24 Last Solid Time 18:00 Social No alcohol and No tobacco Exam alert, oriented x 3, clear to auscultation bilaterally and regular rate & rhythm Airway Submandibular: within normal limits Cervical ROM: within normal limits Mallampati: Class II Pulmonary Asthma and Chronic Obstructive Pulmonary Disease CV/HEM Hypertension Neuropsych Mild cognitive impairment; instability of gait/balance Anesthetic Plan ASA status: 3 Anesthesia: General Medications/Allergies Home Medications Medication Instructions Recorded Confirmed Last Taken Type aspirin 325 mg capsule 325 mg PO DAILY 03/07/22 03/13/24 03/12/24 10:00 History multivitamin (Multiple Vitamins 1 tab PO DAILY 03/07/22 03/13/24 03/12/24 10:00 History tablet) turmeric 100 mg-larissa 150 1 cap PO DAILY 03/07/22 03/13/24 03/12/24 10:00 History mg-olive 50 mg-oreg 150 mg-capryl capsule ezetimibe 10 mg tablet (Zetia) 10 mg PO DAILY 10/15/22 03/13/24 03/12/24 10:00 History ascorbic acid (vitamin C) 500 mg 500 mg PO DAILY 03/11/23 03/13/24 03/12/24 10:00 History tablet cholecalciferol (vitamin D3) 50 50 mcg PO DAILY 03/11/23 03/13/24 03/12/24 10:00 History mcg (2,000 unit) capsule lisinopril 2.5 mg tablet 10 mg PO DAILY 03/11/23 03/13/24 03/12/24 10:00 History duloxetine 30 mg capsule,delayed 30 mg PO DAILY #30 caps 11/26/23 03/13/24 03/12/24 10:00 Rx release (Cymbalta) albuterol sulfate 90 mcg/actuation 1 inh inhalation Q6H PRN short of 03/13/24 03/13/24 Unknown History aerosol inhaler breath donepezil 10 mg tablet 10 mg PO BEDTIME 03/13/24 03/13/24 03/11/24 21:00 History fluticasone fur. 200 mcg-umeclid 1 inh inhalation DAILY 03/13/24 03/13/24 03/12/24 10:00 History 62.5 mcg-vilant 25 mcg inhalat.powder (Trelegy Ellipta) Allergies Allergy/AdvReac Type Severity Reaction Status Date / Time No Known Allergies Allergy Verified 11/26/23 11:42 Current Medications Generic Name Dose Route Start Last Admin Trade Name Freq PRN Reason Stop Dose Admin Acetaminophen 1,000 mg 03/12/24 22:46 03/13/24 06:12 Acetaminophen 500 Mg Tablet PO Not Given Q8H ROBBY Budesonide 0.5 mg 03/13/24 08:00 03/13/24 08:04 Budesonide 0.5 Mg/2 Ml Neb INHALATION Not Given BID.RESPIRATORY ROBBY Hydromorphone HCl 0.5 mg 03/12/24 22:46 03/13/24 05:29 Hydromorphone 1 Mg/Ml Inj 1 Ml IVP 0.5 mg Q3H PRN Administration Severe pain Lactated Ringer's 1,000 mls @ 100 mls/hr 03/12/24 20:30 03/12/24 23:15 Lactated Ringers IV 100 mls/hr .Q10H ROBBY Administration Oxycodone HCl 5 mg 03/12/24 22:46 03/12/24 23:16 Oxycodone 5 Mg Ir Tab/Cap PO 5 mg Q4H PRN Administration Moderate pain Senna 17.2 mg 03/12/24 22:46 03/12/24 23:15 Sennosides 8.6 Mg Tablet PO 17.2 mg BEDTIME ROBBY Administration PFSH Anesthesia Medical History Inotm-5-oaptkokmvgc deficiency Hyperlipidemia HTN (hypertension) Bursitis Hx of cataract bilateral Anxiety Asthma Cognitive disorder Gait instability Balance disorder Psychiatric care Surgical History Hx of hysterectomy Hx of sinus surgery x2 Hx of colonoscopy Family History Mother Congestive heart failure (CHF) Hypertension Father Congestive heart failure (CHF) Stroke Hypertension Social History Smoking and tobacco/nicotine status: former use of tobacco/nicotine Quit status (tobacco/nicotine): has quit using Year quit tobacco: 1986 Former quit date comment: 0.25ppd X 17 years Alcohol intake: never Data Anesthesia 03/13/24 03:20 03/13/24 03:20 Short CBC 03/12/24 03/13/24 Range/Units 20:51 03:20 WBC 10.61 10.83 (3.29-11.43) 10^3/uL Hgb 14.10 13.10 (11.27-16.99) g/dL Hct 44.2 41.2 (36-47) % MCV 93.1 92.6 (85-98) fl Plt Count 144 L 150 L (157-399) 10^3/cmm Neut % (Auto) 75.4 72.2 % Neut # (Auto) 8.00 H 7.82 H (1.8-7.7) 10^3/uL BMP 03/12/24 03/13/24 20:51 03:20 Sodium 142 145 Potassium 4.1 4.4 Chloride 106 108 H Carbon Dioxide 24 25 BUN 20 19 Creatinine 0.9 0.8 Glucose 154 H 113 Calcium 9.3 8.9 Cardiac Enzymes 03/12/24 Range/Units 20:51 NT-Pro-B Natriuret Pep 151 H (0-125) pg/mL Liver Function 03/12/24 Range/Units 20:51 Total Bilirubin 0.2 (0.15-1.2) mg/dL AST 31 (0-32) U/L ALT 24 (0-33) U/L Alkaline Phosphatase 113 H (35-105) U/L Albumin 4.2 (3.5-5.2) g/dL Urine 03/12/24 Range/Units 21:57 Urine Color Dark yellow A (Yellow) Urine Appearance Clear (CLEAR) Urine pH 5.5 (5-7) Ur Specific Heppner 1.024 (1.005-1.030) Urine Protein Negative (Negative) Urine Glucose (UA) Negative (Normal) Urine Ketones Negative (Negative) Urine Nitrate Negative (Negative) Urine Bilirubin Negative (Negative) Ur Leukocyte Esterase Trace A (Negative) Urine RBC 0-2 (0-2) /hpf Urine WBC 6-10 (0-5) /hpf Coags 03/12/24 20:51 C-Reactive Protein 3.0 Cardiac Studies: 2 No Data to Display
[2024-03-13] MEDS: ceFAZolin 1,000 mg SDV 1000 MG IRRIGATION (09:17)
[2024-03-13] MEDS: vancomycin 1,000 MG SDV 1000 MG XX (09:18)
--- NOTE | 2024-03-13 10:33 | P.OP_ITS ---
Operative Report Date of procedure: March 13, 2024 Pre-op diagnosis: Left subcapital hip fracture Post-op diagnosis: Left subcapital hip fracture Post-op findings: 100% displaced left subcapital hip fracture Procedure done: Left bipolar hip arthroplasty Implants: The Bode hip system utilizing the Accolade II 127 degree neck angle hip stem size 6, universal head bipolar component 48 mm outer diameter by 28 mm inner diameter, and an L-fit femoral head 28 mm outer diameter with +0 mm offset Specimens removed/disposition: Femoral head, disposed of Pathology: None Surgeon: Yaa Billingsley MD Attending Anesthesiologist: [facility] operating room technicians Anesthesia: General (Intubated, ASA 3) Estimated blood loss (mL): 100 IV fluids (mL): 1,500 Urine output (mL): 200 Complications: None Findings: Displaced left subcapital hip fracture Condition: stable Disposition: PACU (Then return to floor for postoperative rehabilitation and pain management) Brief History: This 73-year-old woman was admitted through the emergency department. She presented there by ambulance and was diagnosed with a left subcapital hip fracture. By history, the patient up from a chair at work. She notes that her left leg was numb, and she fell onto the left side. Following that, she was unable to ambulate and was transferred to the hospital by ambulance. Imaging demonstrated a displaced subcapital left hip fracture. Surgical procedure was discussed. Risk and complications were discussed with her. Consents were signed and questions were answered. Procedure: The patient was brought to the operating theater, and after undergoing adequate general anesthesia, intubated, ASA 3, she was transferred to the operating room table. The patient was placed in the full lateral position and held in place with the pegboard. Patient's left lower extremity was draped free and was subsequently prepped and further draped free. A surgical pause was performed prior to commencement of the surgical procedure. During the surgical pause, we confirmed the site and side of surgery as well as availability of equipment. Additionally, we confirmed preoperative surgical markings. X-rays are also reviewed during this time. Following the surgical pause, an incision was made centering over the greater trochanter continuing proximally and distally as necessary to allow access to the hip joint. Dissection continues to skin and soft tissue using scalpel. Incision was obtained using electrocautery. Tensor fascia katherine was identified and incised longitudinally. Sciatic nerve was identified and protected throughout the surgical procedure. A Charnley U retractor was placed with care being taken to protect the sciatic nerve during placement. The hip was internally rotated. Piriformis muscle was then identified, tagged, and subsequently incised from the posterior aspect of the hip joint. The remaining short external rotators were also incised. These were then elevated off the capsule and the capsule was entered in a T-type fashion. Each side of the capsule was then tagged. The proximal femur was brought into an appropriate position of the femoral neck osteotomy was accomplished. This was in appropriate position for placement of the prosthetic component. Femoral head was then removed from the acetabulum utilizing a corkscrew. It was subsequently measured. After measuring the femoral head, the appropriate size trial was chosen, and trialing heads were placed into the acetabulum. The chosen size was a 48 mm outer diameter by 28 mm inner diameter. We also trialed the 49 mm, however, this seemed too large. Therefore, the size 48 mm femoral head was chosen for final implantation. Attention was then directed to the proximal femur. Box chisel was used proximally followed by the canal finder and subsequently lateralizing reamer and broaches. The hip was broached to a size 6 Accolade II stem. With this in position, there was excellent fit and fill. Trial reduction was then accomplished with the size 48 mm outer diameter bipolar femoral head with a standard length. The hip was reduced uneventfully. The hip was stable as noted above. Finding this to be the appropriate size components, the hip was once again dislocated and trial components were removed. The hip was irrigated. The acetabulum was evaluated for any loose bodies. At this point, implantation was accomplished. The size 6 Accolade II femoral stem with a 127 degree neck angle was impacted into position. Onto this was placed the universal bipolar head component 48 mm outer diameter by 28 mm inner diameter with a femoral head size 28 mm outer diameter with +0 mm offset. The acetabulum was again evaluated after being irrigated. The hip was reduced and placed through range of motion. It was found to be stable and attention was directed to closure. The hip was irrigated with Betadine diluted with saline. This was left in the wound for approximately 3 minutes. The Betadine was then suctioned from the wound, and the wound was further irrigated. It was suctioned dry. Closure was then accomplished with 0 Vicryl in the capsular tissues. The piriformis was reattached with 0 Vicryl as well. The tensor was closed with 0 Vicryl in an interrupted fashion. Subcutaneous tissues were closed with a combination of 0 Vicryl and 2-0 Monocryl. Skin was closed with 3-0 Monocryl. This was followed by Nguyen Ulloa. The patient was returned the Recovery Room in satisfactory condition. There were no complications. X-rays demonstrated appropriate position of the implants. The patient will be discharged to the floor for postoperative rehabilitation and pain management. Related Problem List Diagnoses (1) Subcapital fracture of left hip:
--- NOTE | 2024-03-13 10:41 | XRR_ITS ---
PROCEDURE INFORMATION: Exam: XR Pelvis Exam date and time: 03/13/2024 10:52 AM Age: 73 years old Clinical indication: Other: Status post bipolar hip arthroplasty, low ap pelvis; Prior surgery; Surgery date: Post-operative (0-2 days) TECHNIQUE: Imaging protocol: Radiologic exam of the pelvis. Views: 1 or 2 view. COMPARISON: CR XR hip LT 2-3V wo/w pel* [id number] 03/12/2024 7:50 PM FINDINGS: Bones/joints: Interval left bipolar hip replacement in anatomic position with no complication evident. Right hip joint is intact. Sacroiliac joints are intact. Soft tissues: Postoperative changes noted in the soft tissues. Vasculature: Pelvic calcifications most likely represent phleboliths. XR/XR pelvis 1-2V* [id number] IMPRESSION: Interval left bipolar hip replacement.
[2024-03-13] MEDS: sodium chloride 0.9% 1,000 ML 30 ML IV (11:45)
--- NOTE | 2024-03-13 12:01 | PC.NURSE ---
Assessment done late d/t pt transferred to surgery before getting morning report.
--- NOTE | 2024-03-13 13:39 | ANE.PACU2 ---
Inpatient post-anesthesia follow up: Airway intact: Yes Vital signs: Temperature 97.7 F Pulse Rate 71 Respiratory Rate 20 Blood Pressure 112/73 Pulse Oximetry 96 Oxygen Delivery Me thod Nasal Cannula Oxygen Flow Rate 2 Fraction of Inspir ed Oxygen Hydration adequate: Yes Nausea and vomiting: No Pain level: 1 Mental status: Baseline
[2024-03-13] MEDS: chlorhexidine gluconate 0.12% Btl 473 mL 30 ML MUCOUS MEM ×3 (13:47→22:27)
[2024-03-13] MEDS: ezetimibe 10 mg Tablet PO (13:47)
[2024-03-13] MEDS: acetaminophen 500 mg Tablet 1000 MG PO ×2 (13:48→22:17)
[2024-03-13] MEDS: duloxetine 30 mg Capsule PO (13:48)
[2024-03-13] MEDS: sennosides-docusate Tablet 2 TAB PO (17:00)
[2024-03-13] MEDS: iron polysaccharide complex 150 mg Capsule PO (17:00)
[2024-03-13] MEDS: mupirocin oint 22 gm 1 APPLIC NASAL (17:00)
[2024-03-13] MEDS: calcium carbonate 500 mg Chew Tablet 1000 MG PO (17:00)
[2024-03-13] MEDS: lanolin oint 7 gm 1 APPLIC TOPICAL (17:07)
[2024-03-13] MEDS: budesonide 0.5 mg/2 mL Neb INHALATION (19:58)
--- NOTE | 2024-03-13 20:13 | P.PN_ITS ---
Subjective 2 Subjective: She is reporting she is recovering from anesthesia, feels slight muscle stiffness , but recovering well. Denies chest pain or pressure. Denies trouble breathing. Not bothered by pain in her left hip. Vitals/I&O/Wt Last Vital Signs Temp 98.9 F 03/13/24 20:00 Pulse 82 03/13/24 20:01 Resp 18 03/13/24 20:01 BP 115/79 03/13/24 20:00 Pulse Ox 96 03/13/24 20:01 O2 Del Method Nasal Cannula 03/13/24 20:01 O2 Flow Rate 2 03/13/24 20:01 03/13/24 03/13/24 03/13/24 06:59 14:59 22:59 Intake Total 1170 / 1170 854.5 / 4.5 Output Total 100 / 100 500 / 500 Balance -100 / -100 670 / 670 854.5 / 1524.5 Weight last 48 hrs Weight 77.564 kg Weight 77.7 kg Weight 72.575 kg Physical Exam 2 Const: COMMON NORMALS: patient oriented x3 and alert GENERAL APPEARANCE: c ooperative ORIENTATION/CONSCIOUSNESS: Yes awake HENMT: COMMON NORMALS: oropharynx normal Neck/C-Spine: COMMON NORMALS: no JVD Resp: COMMON NORMALS: normal respiratory effort and clear to auscultation bilaterally AUSCULTATION: clear to auscultation bilaterally Cardio: COMMON NORMALS: no JVD, regular rhythm, S1 normal heart sound present, S2 normal heart sound present and No murmurs present (Cardio) RHYTHM: regular rhythm HEART SOUNDS: S1 normal heart sound present and S2 normal heart sound present GI: COMMON NORMALS: Normal to inspection, nondistended, normoactive bowel sounds present, Soft to palpation and non-tender PALPATION: Yes Soft to palpation Extremity: COMMON NORMALS: no joint enlargement and no pedal edema OTHER: Left hip postoperative dressing without bleeding. Cool pack is on. Neuro: COMMON NORMALS: patient oriented x3 and moves all extremities S ENSORIUM/ORIENTATION: Yes alert Skin: COMMON NORMALS: no rashes or lesions noted GENERAL SKIN EXAM: no rashes or lesions noted Urinary Catheter Management: Hines Latex: Cath Placed During This Visit: yes Reason for Continuing Indwelling Catheter: Perioperative Use in Selected Surgeries Urinary Catheter Date of Insertion: 09/01/24 Urinary Catheter Time of Insertion: 21:55 Data 03/13/24 03:20 03/13/24 03:20 A&P Assessment and plan (1) Hip fracture: Status post hemiarthroplasty. Doing well postoperatively. Reviewed orthopedic note, EBL 100 mL. Follow-up CBC. Hines catheter in place. DVT prophylaxis once safe. PT assessment. She is awake and alert. Diet was resumed. Will stop LR. Incentive spirometer. Add acetaminophen as needed. Also has oxycodone as needed for moderate pain, IV hydromorphone for severe which she has required. 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 Resume once needed. Monitor blood pressure (4) Major depressive disorder, recurrent, moderate: Continue home medications (5) Generalized anxiety disorder: Continue home medications Plan DVT prophylaxis: SCD for now Attestations 2 Medical Necessity Statement*: Continue admission for assessment and management following left hip fracture and repair. and High MDM includes described risk of complication, morbidity or mortality of management as documented Diagnoses Hip fracture S72.009A Eosinophilic asthma J82.83 HTN (hypertension) I10 Major depressive disorder, recurrent, moderate F33.1 Generalized anxiety disorder F41.1
[2024-03-13] MEDS: donepezil 5 MG Tablet 10 MG PO (22:17)
[2024-03-13] MEDS: oxyCODONE 5 mg IR Tab/Cap PO (22:18)
[2024-03-13] MEDS: sennosides 8.6 mg Tablet 17.2 MG PO (22:18)
[2024-03-14] VITALS (12 sets, daily range): BP systolic 106–125; BP diastolic 59–73; PULSE 77–93; RESP 16–18; TEMP 36.6–37.2; O2SAT 90–97
[2024-03-14] MEDS: ceFAZolin 2,000 mg SDV 2000 MG IVP ×2 (01:28→08:36)
[2024-03-14] MEDS: oxyCODONE 5 mg IR Tab/Cap PO ×4 (01:35→18:50)
[2024-03-14 03:02] LABS: Basophils # 0.1 10^3/uL (0.0-0.1); Basophils % 0.6 %; Eosinophils # 0.2 10^3/uL (0.0-0.8); Eosinophils % 1.7 %; Hematocrit 35.1 % (36-47); Lymphocytes # 1.3 10^3/uL (0.8-4.8); Lymphocytes % 11.7 %; Mean Corpuscular HGB Conc 31.3 g/dL (30-55); Mean Corpuscular Hemoglobin 28.9 pg (27-33); Mean Corpuscular Volume 92.4 fl (85-98); Mean Platelet Volume 11.7 fL (7.4-10.4); Monocytes % 9.3 %; Neutrophils # 8.18 10^3/uL (1.8-7.7); Neutrophils % 76.5 %; Nucleated Red Blood Cells % 0 %; Platelet Count 108 10^3/cmm (157-399); Red Cell Distribution Width 12.2 % (12.1-15.1); White Blood Count 10.68 10^3/uL (3.29-11.43)
[2024-03-14 03:26] LABS: Anion Gap 14.3 (5-19); Blood Urea Nitrogen 15 mg/dL (8-23); Calcium 8.8 mg/dL (8.5-10.5); Carbon Dioxide 23 mmol/L (22-29); Chloride 108 mmol/L (98-107); Glucose 110 mg/dL (65-115); Osmolality Calculated 293 mOsm/kg (285-295); Potassium 4.3 mmol/L (3.5-5.1); Sodium 141 mmol/L (136-145)
[2024-03-14] MEDS: acetaminophen 500 mg Tablet 1000 MG PO ×2 (06:31→22:12)
[2024-03-14] MEDS: ezetimibe 10 mg Tablet PO (08:25)
[2024-03-14] MEDS: multivitamin therapeutic Tablet 1 TAB PO (08:25)
[2024-03-14] MEDS: sennosides-docusate Tablet 2 TAB PO ×2 (08:25→17:19)
[2024-03-14] MEDS: duloxetine 30 mg Capsule PO (08:25)
[2024-03-14] MEDS: calcium carbonate 500 mg Chew Tablet 1000 MG PO ×2 (08:25→17:19)
[2024-03-14] MEDS: cholecalciferol (vitamin D3) 1,000 unit Tablet 1000 UNIT PO (08:25)
[2024-03-14] MEDS: iron polysaccharide complex 150 mg Capsule PO ×2 (08:25→17:19)
[2024-03-14] MEDS: aspirin 325 mg EC Tablet PO (08:25)
[2024-03-14] MEDS: mupirocin oint 22 gm 1 APPLIC NASAL ×2 (08:36→17:19)
[2024-03-14] MEDS: chlorhexidine gluconate 0.12% Btl 473 mL 30 ML MUCOUS MEM ×4 (08:36→20:43)
[2024-03-14] MEDS: ipratropium-albuterol 3 mL Neb INHALATION (09:16)
[2024-03-14] MEDS: budesonide 0.5 mg/2 mL Neb INHALATION ×2 (09:16→20:55)
--- NOTE | 2024-03-14 14:34 | P.PN_ITS ---
Subjective 2 Subjective: No acute interim events. Tolerated surgery well. Pain is well-controlled. Participating with physical therapy today. Medications: Reviewed: Yes Vitals/I&O/Wt Last Vital Signs Temp 97.8 F 03/14/24 11:27 Pulse 93 03/14/24 11:27 Resp 16 03/14/24 13:09 BP 106/59 03/14/24 11:27 Pulse Ox 90 03/14/24 11:27 O2 Del Method Room Air 03/14/24 11:27 O2 Flow Rate 2 03/14/24 04:00 03/13/24 03/14/24 03/14/24 22:59 06:59 14:59 Intake Total 2334.5 / 3504.5 120 / 3624.5 476 / 476 Output Total 1200 / 1700 600 / 2300 Balance 1134.5 / 1804.5 -480 / 1324.5 476 / 476 Weight last 48 hrs Weight 78.653 kg Weight 77.564 kg Weight 77.7 kg Weight 72.575 kg Physical Exam 2 Narrative: General: No acute distress, AO x3 HEENT: PERRLA, pupils bilaterally equal and reactive, pallors not present Chest: Normal vesicular breath sounds, no added sounds, equal good air entry bilaterally CVS: S1-S2 regular, no murmurs, no tachycardia, no gallops, no rubs Abdomen: Soft, nontender, no organomegaly, bowel sounds present Neuro: No focal deficits, no facial deformity, AO x3, power 5/5 in all limbs Urinary Catheter Management: Hines Latex: Cath Placed During This Visit: yes, but has since been removed by the nurse Reason for Continuing Indwelling Catheter: Decision to DC Catheter Urinary Catheter Date of Insertion: 03/13/24 Urinary Catheter Time of Insertion: 21:55 Date Urinary Catheter Removed: 03/14/24 Time Urinary Catheter Discontinued: 06:30 Data 03/14/24 02:29 03/14/24 02:29 A&P Assessment and plan (1) Hip fracture: Status post hemiarthroplasty. Doing well postoperatively. Reviewed orthopedic note, EBL 100 mL. Follow-up CBC. Hines catheter in place. DVT prophylaxis once safe. PT assessment. She is awake and alert. Diet was resumed. Will stop LR. Incentive spirometer. Add acetaminophen as needed. Also has oxycodone as needed for moderate pain, IV hydromorphone for severe which she has required. 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 Resume once needed. Monitor blood pressure (4) Major depressive disorder, recurrent, moderate: Continue home medications (5) Generalized anxiety disorder: Continue home medications Plan DVT prophylaxis: Aspirin 325 mg daily Plan for today March 14, 2024. Patient was able to get out of bed today. Walked a little bit around the bed and a few steps in the room. However has not been ambulating up to the bathroom yet. Participating with physical therapy. Depending on how she does with therapy over the next 24 hours, to address appropriate disposition planning. Hemoglobin is stable. Attestations 2 Medical Necessity Statement*: continued thereapy ost replacement, disposition planning Coding Level of Care Code Acute Code for [facility] Fwd Diagnoses Hip fracture S72.009A Eosinophilic asthma J82.83 HTN (hypertension) I10 Major depressive disorder, recurrent, moderate F33.1 Generalized anxiety disorder F41.1
--- NOTE | 2024-03-14 16:58 | P.PN_ITS ---
Subjective 2 Subjective: The patient is seen in her room. She has been working with physical therapy. She notes that she would like to be discharged to retirement, but upon physical therapy evaluation, there is thought that she would be able to be discharged to home with home health. Medications: Reviewed: Yes Vitals/I&O/Wt Last Vital Signs Temp 98.4 F 03/14/24 15:20 Pulse 89 03/14/24 15:20 Resp 16 03/14/24 15:20 BP 118/70 03/14/24 15:20 Pulse Ox 91 03/14/24 15:20 O2 Del Method Room Air 03/14/24 15:20 O2 Flow Rate 2 03/14/24 04:00 03/14/24 03/14/24 03/14/24 06:59 14:59 22:59 Intake Total 120 / 3624.5 476 / 476 Output Total 600 / 2300 Balance -480 / 1324.5 476 / 476 Weight last 48 hrs Weight 173 lb 6.4 oz Weight 171 lb Weight 171 lb 4.8 oz Weight 160 lb Physical Exam 2 Const: COMMON NORMALS: no acute distress, average body habitus, patient oriented x3 and alert GENERAL APPEARANCE: cooperative and comfortable O RIENTATION/CONSCIOUSNESS: Yes awake HENMT: COMMON NORMALS: normocephalic and atraumatic HEAD & SCALP: n ormocephalic and atraumatic Eye: GENERAL EYE: appearance normal, both eyes and all related structures Chest: COMMONS NORMALS: normal inspection of the chest Resp: COMMON NORMALS: normal respiratory effort EFFORT & INSPECTION: Yes able to speak in complete sentences and Yes symmetric chest movement Extremity: LEFT LOWER EXTREMITY: Yes hip joint (Dressing is dry and intact.) Left hip: Yes inspection (No significant swelling or ecchymosis.), Yes ROM (Patient is able to move her leg into bed.) and Yes neurovascular exam (Intact with no evidence of DVT) Neuro: COMMON NORMALS: patient oriented x3 SENSORIUM/ORIENTATION: Yes alert Psych: COMMON NORMALS: mental status grossly normal APPEARANCE: Yes grossly normal ATTITUDE: Yes calm and Yes engaged ATTENTION/CONCENTRATION: Yes attention grossly intact Skin: COMMON NORMALS: no rashes or lesions noted GENERAL SKIN EXAM: no rashes or lesions noted Urinary Catheter Management: Hines Latex: Cath Placed During This Visit: yes, but has since been removed by the nurse Reason for Continuing Indwelling Catheter: Decision to DC Catheter Urinary Catheter Date of Insertion: 03/13/24 Urinary Catheter Time of Insertion: 21:55 Date Urinary Catheter Removed: 03/14/24 Time Urinary Catheter Discontinued: 06:30 Data 03/14/24 02:29 03/14/24 02:29 A&P Assessment and plan (1) Subcapital fracture of left hip: Patient is doing well postoperatively. She is working with physical therapy and attempts to regain her independence. She still has been to work on strength and transfers. She was considering going to retirement versus home physical therapy. We will continue to work with her and determine the most appropriate course. Qualifiers: Encounter type: initial encounter Fracture type: closed Qualified Code(s): S72.012A - Unspecified intracapsular fracture of left femur, initial encounter for closed fracture Attestations 2 Medical Necessity Statement*: Per hospitalist [id number] Coding Level of Care Code Acute Code for [facility] Fwd Diagnoses Closed subcapital fracture of left femur, initial encounter S72.012A Encounter type: initial encounter Fracture type: closed
[2024-03-14] MEDS: sennosides 8.6 mg Tablet 17.2 MG PO (20:44)
[2024-03-14] MEDS: donepezil 5 MG Tablet 10 MG PO (20:44)
[2024-03-15] VITALS (7 sets, daily range): BP systolic 119–152; BP diastolic 61–79; PULSE 80–88; RESP 15–17; TEMP 36.4–37.1; O2SAT 90–95
[2024-03-15 04:59] LABS: Basophils # 0.1 10^3/uL (0.0-0.1); Eosinophils % 9.9 %; Hematocrit 36.2 % (36-47); Lymphocytes # 1.4 10^3/uL (0.8-4.8); Lymphocytes % 14.9 %; Mean Corpuscular Hemoglobin 29.1 pg (27-33); Mean Corpuscular Volume 90.7 fl (85-98); Mean Platelet Volume 11.9 fL (7.4-10.4); Monocytes # 0.9 10^3/uL (0.2-0.9); Monocytes % 9.1 %; Neutrophils # 6.25 10^3/uL (1.8-7.7); Neutrophils % 64.7 %; Nucleated Red Blood Cells % 0 %; Platelet Count 106 10^3/cmm (157-399); Red Blood Count 3.99 10^6/uL (3.85-5.65); Red Cell Distribution Width 12.1 % (12.1-15.1); White Blood Count 9.67 10^3/uL (3.29-11.43)
[2024-03-15 05:15] LABS: Alanine Aminotransferase 9 U/L (0-33); Albumin Level 3.2 g/dL (3.5-5.2); Alkaline Phosphatase 105 U/L (35-105); Anion Gap 15.3 (5-19); Aspartate Amino Transferase 34 U/L (0-32); Blood Urea Nitrogen 15 mg/dL (8-23); Calcium 8.7 mg/dL (8.5-10.5); Carbon Dioxide 23 mmol/L (22-29); Chloride 106 mmol/L (98-107); Creatinine Clr Calc Pharmacy 64.9202; Globulin 2.4 g/dL (1.3-4.6); Glucose 125 mg/dL (65-115); Osmolality Calculated 292 mOsm/kg (285-295); Potassium 4.3 mmol/L (3.5-5.1); Sodium 140 mmol/L (136-145); Total Bilirubin 0.5 mg/dL (0.15-1.2); Total Protein 5.6 g/dL (6.6-8.7)
[2024-03-15] MEDS: acetaminophen 500 mg Tablet 1000 MG PO (05:50)
[2024-03-15] MEDS: oxyCODONE 5 mg IR Tab/Cap PO (05:52)
[2024-03-15] MEDS: budesonide 0.5 mg/2 mL Neb INHALATION (08:31)
[2024-03-15] MEDS: sennosides-docusate Tablet 2 TAB PO (09:46)
[2024-03-15] MEDS: aspirin 325 mg Tablet PO (09:46)
[2024-03-15] MEDS: chlorhexidine gluconate 0.12% Btl 473 mL 30 ML MUCOUS MEM (09:47)
[2024-03-15] MEDS: cholecalciferol (vitamin D3) 1,000 unit Tablet 1000 UNIT PO (09:47)
[2024-03-15] MEDS: calcium carbonate 500 mg Chew Tablet 1000 MG PO (09:47)
[2024-03-15] MEDS: multivitamin therapeutic Tablet 1 TAB PO (09:47)
[2024-03-15] MEDS: ezetimibe 10 mg Tablet PO (09:47)
[2024-03-15] MEDS: iron polysaccharide complex 150 mg Capsule PO (09:47)
[2024-03-15] MEDS: duloxetine 30 mg Capsule PO (09:47)
[2024-03-15] MEDS: mupirocin oint 22 gm 1 APPLIC NASAL (09:47)
--- NOTE | 2024-03-15 10:20 | P.DS_ITS ---
Discharge Providers Date of Admission: 03/12/24 20:44 Date of Discharge: March 15, 2024 Attending Provider at Admission: Haris Calloway MD Attending Provider at Discharge: Laney Moore MD Primary Care Provider: Hetal Mccarty DO Diagnoses at Discharge Discharge Diagnosis (1) Subcapital fracture of left hip: Status: Acute Qualifiers: Encounter type: initial encounter Fracture type: closed Qualified Code(s): S72.012A - Unspecified intracapsular fracture of left femur, initial encounter for closed fracture Reason for Visit Reason for Visit: fall, left hip pain Brief History: 73-year-old lady with history of eosinop hilic asthma, HTN, anxiety, balance disorder, was admitted after a fall with left hip fracture after sustaining a mechanical fall and underwent hemiarthroplasty during the hospital stay. She tolerated the procedure well. Was participating with physical therapy at the time of discharge. Home health services including PT have been arranged at the time of discharge. Lisinopril was held during the course of admission due to soft blood pressure, now resumed at discharge. Physical Exam Narrative: General: No acute distress, AO x3 HEENT: PERRLA, pupils bilaterally equal and reactive, pallors not present Chest: Normal vesicular breath sounds, no added sounds, equal good air entry bilaterally CVS: S1-S2 regular, no murmurs, no tachycardia, no gallops, no rubs Abdomen: Soft, nontender, no organomegaly, bowel sounds present Neuro: No focal deficits, no facial deformity, AO x3, power 5/5 in all limbs Urinary Catheter Management: Hines Latex: Cath Placed During This Visit: yes, but has since been removed by the nurse Reason for Continuing Indwelling Catheter: Decision to DC Catheter Urinary Catheter Date of Insertion: 03/13/24 Urinary Catheter Time of Insertion: 21:55 Date Urinary Catheter Removed: 03/14/24 Time Urinary Catheter Discontinued: 06:30 Discharge Data Studies Completed and Pending Completed Studies During Hospitalization Category Date Time Status XR chest 1V portable [id number] Stat Exams 03/12/24 20:03 Completed XR hip LT 2-3V wo/w pel* [id number] Stat Exams 03/12/24 19:38 Completed XR pelvis 1-2V* [id number] Routine Exams 03/13/24 10:41 Completed Radiology Impressions Hip/Pelvis X-Ray 03/12/24 19:38 IMPRESSION: There is transverse fracture of the left femoral neck with varus deformity. Chest X-Ray 03/12/24 20:03 IMPRESSION: No acute findings. Pelvis X-Ray 03/13/24 10:41 IMPRESSION: Interval left bipolar hip replacement. Laboratory Results WBC 9.67 10^3/uL (3.29-11.43) 03/15/24 04:32 RBC 3.99 10^6/uL (3.85-5.65) 03/15/24 04:32 Hgb 11.60 g/dL (11.27-16.99) 03/15/24 04:32 Hct 36.2 % (36-47) 03/15/24 04:32 MCV 90.7 fl (85-98) 03/15/24 04:32 MCH 29.1 pg (27-33) 03/15/24 04:32 MCHC 32.0 g/dL (30-55) 03/15/24 04:32 RDW 12.1 % (12.1-15.1) 03/15/24 04:32 Plt Count 106 10^3/cmm (157-399) L 03/15/24 04:32 MPV 11.9 fL (7.4-10.4) H 03/15/24 04:32 Neut % (Auto) 64.7 % 03/15/24 04:32 Lymph % (Auto) 14.9 % 03/15/24 04:32 Beauregard % (Auto) 9.1 % 03/15/24 04:32 Eos % (Auto) 9.9 % 03/15/24 04:32 Baso % (Auto) 1.0 % 03/15/24 04:32 Neut # (Auto) 6.25 10^3/uL (1.8-7.7) 03/15/24 04:32 Lymph # (Auto) 1.4 10^3/uL (0.8-4.8) 03/15/24 04:32 Beauregard # (Auto) 0.9 10^3/uL (0.2-0.9) 03/15/24 04:32 Eos # (Auto) 1.0 10^3/uL (0.0-0.8) H 03/15/24 04:32 Baso # (Auto) 0.1 10^3/uL (0.0-0.1) 03/15/24 04:32 Nucleated RBC % (auto) 0 % 03/15/24 04:32 Nucleated RBCs # 0.0 /100WBC 03/15/24 04:32 Sodium 140 mmol/L (136-145) 03/15/24 04:32 Potassium 4.3 mmol/L (3.5-5.1) 03/15/24 04:32 Chloride 106 mmol/L (98-107) 03/15/24 04:32 Carbon Dioxide 23 mmol/L (22-29) 03/15/24 04:32 Anion Gap 15.3 (5-19) 03/15/24 04:32 BUN 15 mg/dL (8-23) 03/15/24 04:32 Creatinine 0.7 mg/dL (0.5-0.9) 03/15/24 04:32 GFR Calculation Not Reportable 03/15/24 04:32 Glucose 125 mg/dL (65-115) H 03/15/24 04:32 Calculated Osmolality 292 mOsm/kg (285-295) 03/15/24 04:32 Calcium 8.7 mg/dL (8.5-10.5) 03/15/24 04:32 Magnesium 2.0 mg/dL (1.7-2.3) 03/13/24 03:20 Total Bilirubin 0.5 mg/dL (0.15-1.2) 03/15/24 04:32 AST 34 U/L (0-32) H 03/15/24 04:32 ALT 9 U/L (0-33) 03/15/24 04:32 Alkaline Phosphatase 105 U/L (35-105) 03/15/24 04:32 C-Reactive Protein 3.0 mg/L (0.0-4.9) 03/12/24 20:51 NT-Pro-B Natriuret Pep 151 pg/mL (0-125) H 03/12/24 20:51 Total Protein 5.6 g/dL (6.6-8.7) L 03/15/24 04:32 Albumin 3.2 g/dL (3.5-5.2) L 03/15/24 04:32 Globulin 2.4 g/dL (1.3-4.6) 03/15/24 04:32 Urine Color Dark yellow (Yellow) A 03/12/24 21:57 Urine Appearance Clear (CLEAR) 03/12/24 21:57 Urine pH 5.5 (5-7) 03/12/24 21:57 Ur Specific Liberty 1.024 (1.005-1.030) 03/12/24 21:57 Urine Protein Negative (Negative) 03/12/24 21:57 Urine Glucose (UA) Negative (Normal) 03/12/24 21:57 Urine Ketones Negative (Negative) 03/12/24 21:57 Urine Blood Negative (Negative) 03/12/24 21:57 Urine Nitrate Negative (Negative) 03/12/24 21:57 Urine Bilirubin Negative (Negative) 03/12/24 21:57 Urine Urobilinogen 1.0 mg/dL (Negative) 03/12/24 21:57 Ur Leukocyte Esterase Trace (Negative) A 03/12/24 21:57 Urine RBC 0-2 /hpf (0-2) 03/12/24 21:57 Urine WBC 6-10 /hpf (0-5) 03/12/24 21:57 Ur Squamous Epith Cells 0-5 /hpf (0-5) 03/12/24 21:57 Amorphous Sediment Not Reportable 03/12/24 21:57 Urine Bacteria None seen /hpf (NONE) 03/12/24 21:57 Hyaline Casts 2.05 /lpf 03/12/24 21:57 Vitals Last Vital Signs Temp 97.5 F L 03/15/24 07:15 Pulse 87 03/15/24 08:00 Resp 16 03/15/24 08:00 BP 137/79 03/15/24 07:15 Pulse Ox 95 03/15/24 08:00 O2 Del Method Room Air 03/15/24 08:00 O2 Flow Rate 2 03/14/24 04:00 Discharge Plan Discharge Patient Disposition: Home Health Service Condition: Stable Prescriptions: New oxycodone 5 mg Tablet 5 mg PO Q8H PRN (Reason: Moderate pain) 5 Days Qty: 15 0RF Continued ezetimibe [Zetia] 10 mg tablet 10 mg PO DAILY aspirin 325 mg capsule 325 mg PO DAILY multivitamin [Multiple Vitamins] Tablet 1 tab PO DAILY mvlflfze-gxpp-ujmgy-oreg-capry 100 mg-150 mg- 50 mg-150 mg capsule 1 cap PO DAILY lisinopril 2.5 mg tablet 10 mg PO DAILY cholecalciferol (vitamin D3) 50 mcg (2,000 unit) capsule 50 mcg PO DAILY ascorbic acid (vitamin C) 500 mg tablet 500 mg PO DAILY duloxetine [Cymbalta] 30 mg capsule,delayed release(DR/EC) 30 mg PO DAILY Qty: 30 2RF albuterol sulfate 90 mcg/actuation HFA aerosol inhaler 1 inh INHALATION Q6H PRN (Reason: short of breath) Trelegy Ellipta 200-62.5-25 mcg blister with device 1 inh INHALATION DAILY donepezil 10 mg tablet 10 mg PO BEDTIME Rx Instructions: Do not start until finished 5 mg for 4 weeks Discharge Orders: Discharge Order (Routine); Ordered 03/15/24 Ordered By: Laney Moore Other Ambulatory Orders: DME: [facility] (Order) Location: None Selected Ordered By: Laney Moore Discharge Diet: Usual diet Discharge Activity: As per PT/OT instructions Patient Instructions: Acute Wound Care (DC), Opioid Safety, Post Anesthesia Care Discharge Attestations Time Spent in Discharge Care*: greater than 30 min Quality Metrics Clinical Quality Measures [ No reported AMI, CVA or VTE this stay] Coding Level of Care Code Acute Code for Chg Fwd Diagnoses Closed subcapital fracture of left femur, initial encounter S72.012A Encounter type: initial encounter Fracture type: closed
--- NOTE | 2024-03-15 15:20 | PC.NURSE ---
Discharge delay- patient has signed discharge paperwork and is awaiting transportation from son.
== END 2024-03-15 18:05 | disposition skilled nursing facility (03) | DRG 522 ==
LOC: ER 20:48 → MEDSURG 21:32
PROVIDERS: Specialist; Admitting Provider Internal Medicine; Emergency Provider Emergency Medicine; PCP Family Medicine; Visit Provider Student in an Organized Health Care Education/Training Program
PROC: 0SRS0JZ Replacement of Left Hip Joint, Femoral Surface with Synthetic Substitute, Open Approach (ICD-10-PCS; CPT 27125; principal; 2024-03-13 08:00)
DX: S72.012A Unspecified intracapsular fracture of left femur, initial encounter for closed fracture (principal); J82.83 Eosinophilic asthma; F33.1 Major depressive disorder, recurrent, moderate; W07.XXXA Fall from chair, initial encounter; M81.0 Age-related osteoporosis without current pathological fracture; E78.5 Hyperlipidemia, unspecified; I10 Essential (primary) hypertension; R41.3 Other amnesia; E88.01 Alpha-1-antitrypsin deficiency; F41.9 Anxiety disorder, unspecified; R26.89 Other abnormalities of gait and mobility; F41.1 Generalized anxiety disorder; Z79.82 Long term (current) use of aspirin; Z87.891 Personal history of nicotine dependence
CPT/HCPCS: 36415; 51702; 71045; 72170; 73502; 80048; 80053; 81003; 81015; 83735; 83880; 85025; 86140; 93005; 94640; 97110; 97116; 97162; 97165; 97530; 99285; C1776; J0131; J0690; J1100; J1170; J2371; J2405; J2704; J2710; J3010; J3370; J3490; J3535; J7030; J7120; J7626

== ENCOUNTER → 2024-03-28 14:50 | Outpatient (BNVA) | payer MEDICARE, SELFPAY ==
[2023-07-24 10:03] VITALS: BP 153/80; BMI 25.4
== END ==
PROVIDERS: PCP Family Medicine; Visit Provider Nurse Practitioner
DX: Z96.642 Presence of left artificial hip joint (principal); S72.012A Unspecified intracapsular fracture of left femur, initial encounter for closed fracture; X58.XXXA Exposure to other specified factors, initial encounter
CPT/HCPCS: 73502; 99024

== ENCOUNTER → 2024-04-25 14:10 | Outpatient (BNVA) | payer MEDICARE, SELFPAY ==
[2023-07-24 10:03] VITALS: BP 153/80; BMI 25.4
== END ==
PROVIDERS: PCP Family Medicine; Visit Provider Nurse Practitioner
DX: Z96.642 Presence of left artificial hip joint (principal); M70.62 Trochanteric bursitis, left hip; S72.012D Unspecified intracapsular fracture of left femur, subsequent encounter for closed fracture with routine healing; X58.XXXD Exposure to other specified factors, subsequent encounter; R03.0 Elevated blood-pressure reading, without diagnosis of hypertension
CPT/HCPCS: 73502; 99024

== ENCOUNTER → 2024-07-27 10:55 | Outpatient (BNVA) | payer MEDICARE, SELFPAY ==
[2023-07-24 10:03] VITALS: BP 153/80; BMI 25.4
== END ==
PROVIDERS: PCP Family Medicine; Visit Provider Nurse Practitioner
DX: Z96.642 Presence of left artificial hip joint (principal); M70.62 Trochanteric bursitis, left hip; S72.012A Unspecified intracapsular fracture of left femur, initial encounter for closed fracture; X58.XXXA Exposure to other specified factors, initial encounter
CPT/HCPCS: 73502; 99213

== ENCOUNTER → 2024-09-07 11:14 | Outpatient (BNVA) | payer MEDICARE, SELFPAY ==
[2023-07-24 10:03] VITALS: BP 153/80; BMI 25.4
== END ==
PROVIDERS: PCP Family Medicine; Visit Provider Nurse Practitioner
DX: M70.62 Trochanteric bursitis, left hip (principal); Z96.642 Presence of left artificial hip joint; S72.012D Unspecified intracapsular fracture of left femur, subsequent encounter for closed fracture with routine healing; X58.XXXD Exposure to other specified factors, subsequent encounter
CPT/HCPCS: 99213

== ENCOUNTER 2024-11-01 20:50 | Emergency (ER) | payer MEDICARE, SELFPAY ==
[2023-07-24 10:03] VITALS: BP 153/80; BMI 25.4
--- NOTE | 2024-11-01 20:52 | XRR_ITS ---
PROCEDURE INFORMATION: Exam: XR Left Knee Exam date and time: 11/01/2024 8:57 PM Age: 74 years old Clinical indication: Injury or trauma; Fall; Blunt trauma; Knee; Left TECHNIQUE: Imaging protocol: Radiologic exam of the left knee. Views: 3 views. COMPARISON: CR XR foot LT min 3V* [id number] 02/28/2020 2:16 PM FINDINGS: Bones/joints: Comminuted impacted fracture of the tibial plateau with wedge-shaped fracture with compression fracture and slight lateral displacement of the lateral tibial plateau and slight medial displacement of the medial plateau. There is no joint effusion. Soft tissues: Normal. XR/XR knee LT 3V* [id number] IMPRESSION: Comminuted impacted fracture of both tibial plateaus with wedge-shaped and compression fracture of the lateral plateau and slight medially displaced wedge-shaped fracture of the medial tibial plateau.
[2024-11-01 20:54] VITALS: BP 170/82; PULSE 78; RESP 18; TEMP 36.1; O2SAT 98; BMI 26.6
--- NOTE | 2024-11-01 20:55 | W.ED.FALL ---
HPI - Fall General: Chief Complaint: Fall Stated Complaint: fall, left knee pain Time Seen by Provider: 11/01/24 20:51 Source: patient and EMS Mode of arrival: EMS Limitations: no limitations History of Present Illness: 74-year-old female who is here with EMS after a fall states she fell landed directly on her left knee states she has severe knee pain she rates a 9 out of 10 unable to straighten her leg she denies any other injuries. Denies hitting her head Associated symptoms-after fall: Denies abdominal pain, chest pain, headache(s) or neck pain Related Data Home Medications ?Medication ?Instructions ?Recorded ?Confirmed aspirin 325 mg capsule 325 mg PO DAILY 03/07/22 09/07/24 multivitamin (Multiple Vitamins 1 tab PO DAILY 03/07/22 09/07/24 tablet) turmeric 100 mg-larissa 150 1 cap PO DAILY 03/07/22 09/07/24 mg-olive 50 mg-oreg 150 mg-capryl capsule ezetimibe 10 mg tablet (Zetia) 10 mg PO DAILY 10/15/22 09/07/24 ascorbic acid (vitamin C) 500 mg 500 mg PO DAILY 03/11/23 09/07/24 tablet cholecalciferol (vitamin D3) 50 50 mcg PO DAILY 03/11/23 09/07/24 mcg (2,000 unit) capsule lisinopril 2.5 mg tablet 10 mg PO DAILY 03/11/23 09/07/24 albuterol sulfate 90 mcg/actuation 1 inh inhalation Q6H PRN short of 03/13/24 09/07/24 aerosol inhaler breath venlafaxine 37.5 mg 37.5 mg PO DAILY 09/30/24 09/30/24 capsule,extended release 24 hr Previous Rx's ?Medication ?Instructions ?Recorded duloxetine 30 mg capsule,delayed 30 mg PO DAILY #30 caps 11/26/23 release (Cymbalta) acetaminophen 500 mg tablet 1,000 mg (2 x 500 mg) PO Q8H #0 03/15/24 tabs Allergies Allergy/AdvReac Type Severity Reaction Status Date / Time No Known Allergies Allergy Verified 11/01/24 20:59 Review of Systems Const: Denies: fever(s), chills, body aches or change in appetite ENMT: Denies: throat pain or dental pain Card: Denies: chest pain Resp: Denies: dyspnea GI: Denies: abdominal pain, nausea, vomiting or diarrhea Musc: Reports: extremity pain; Denies: neck pain or back pain Skin/Breast: Denies: rash Neuro: Denies: headache(s) PFSH ED PFSH: Medical History Greater trochanteric bursitis of left hip [id number] deficiency Hyperlipidemia HTN (hypertension) Bursitis Hx of cataract bilateral Anxiety Asthma Cognitive disorder Gait instability Balance disorder Psychiatric care Surgical History Hx of hysterectomy Hx of sinus surgery x2 Hx of colonoscopy History of hemiarthroplasty of left hip Date of procedure: March 13, 2024 Procedure done: Left bipolar hip arthroplasty Implants: The [place] hip system utilizing the Accolade II 127 degree neck angle hip stem size 6, universal head bipolar component 48 mm outer diameter by 28 mm inner diameter, and an L-fit femoral head 28 mm outer diameter with +0 mm offset. Surgeon: Yaa Billingsley MD Family History Mother Congestive heart failure (CHF) Hypertension Father Congestive heart failure (CHF) Stroke Hypertension Social History Smoking and tobacco/nicotine status: never used tobacco/nicotine Quit status (tobacco/nicotine): has quit using Year quit tobacco: 1986 Former quit date comment: 0.25ppd X 17 years Alcohol intake: never Current occupation: works at prison Physical Exam Const: COMMON NORMALS: no acute distress, patient oriented x3 and healthy appearing HENMT: COMMON NORMALS: normocephalic and atraumatic HEAD & SCALP: normocephalic and atraumatic Eye: COMMON NORMALS: conjunctivae normal CONJUNCTIVA: Yes conjunctivae normal Neck/C-Spine: COMMON NORMALS: full ROM and supple Chest: COMMONS NORMALS: normal inspection of the chest Resp: COMMON NORMALS: normal respiratory effort Cardio: COMMON NORMALS: regular rate RATE: regular rate Extremity: NARRATIVE EXTREMITY EXAM: Tenderness noted to left knee distal pulses and sensation intact Neuro: COMMON NORMALS: patient oriented x3, moves all extremities and no focal motor deficits Psych: COMMON NORMALS: mental status grossly normal, Normal thought process present and cooperative THOUGHT PROCESS: Normal thought process present Skin: COMMON NORMALS: no rashes or lesions noted and no wounds GENERAL SKIN EXAM: no rashes or lesions noted Course Vital Signs: Vital signs: Vital Signs Temperature 97.0 F L 11/01/24 20:54 Pulse Rate 68 11/01/24 21:35 Respiratory Rate 16 11/01/24 21:35 Blood Pressure 140/70 11/01/24 21:35 Pulse Oximetry 97 11/01/24 21:35 Oxygen Delivery Me thod Room Air 11/01/24 21:35 MDM - Fall Medical Decision Making Patient presents here after a fall has a tibial plateau fracture to the left knee did speak to orthopedics here Dr. Pena it is an extensive tibial plateau that is comminuted he felt it would be better served at a trauma facility I did speak to orthopedic at [facility] and will transfer there for higher level of care for trauma Ortho Medical Records I reviewed the patient's medical records. Lab Data Radiology Impressions Knee X-Ray 11/01/24 20:52 IMPRESSION: Comminuted impacted fracture of both tibial plateaus with wedge-shaped and compression fracture of the lateral plateau and slight medially displaced wedge-shaped fracture of the medial tibial plateau. All radiology interpretation(s) finalized by discharge Discharge Plan Discharge Patient Disposition: Admitted As Inpatient Clinical Impression: Fracture of left tibial plateau Condition: Stable Prescriptions: No Action ezetimibe [Zetia] 10 mg tablet 10 mg PO DAILY aspirin 325 mg capsule 325 mg PO DAILY multivitamin [Multiple Vitamins] Tablet 1 tab PO DAILY mlawdzox-gylz-cmlgj-oreg-capry 100 mg-150 mg- 50 mg-150 mg capsule 1 cap PO DAILY lisinopril 2.5 mg tablet 10 mg PO DAILY cholecalciferol (vitamin D3) 50 mcg (2,000 unit) capsule 50 mcg PO DAILY ascorbic acid (vitamin C) 500 mg tablet 500 mg PO DAILY duloxetine [Cymbalta] 30 mg capsule,delayed release(DR/EC) 30 mg PO DAILY Qty: 30 2RF venlafaxine 37.5 mg capsule,extended release 24hr 37.5 mg PO DAILY albuterol sulfate 90 mcg/actuation HFA aerosol inhaler 1 inh INHALATION Q6H PRN (Reason: short of breath) acetaminophen 500 mg Tablet 1,000 mg PO Q8H Qty: 0 0RF Referrals: Hetal Mccarty DO [Primary Care Provider] - Print Language: Greek Coding Level of Care Code ED 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
[2024-11-01 21:35] VITALS: BP 140/70; PULSE 68; RESP 16; O2SAT 97
[2024-11-01] MEDS: morphine 4 mg/mL SDV 1 mL IVP (21:45)
[2024-11-01 22:00] VITALS: BP 134/74; PULSE 72; RESP 16; O2SAT 94
[2024-11-01 22:21] LABS: Basophils # 0.1 10^3/uL (0.0-0.1); Basophils % 0.6 %; Eosinophils # 0.2 10^3/uL (0.0-0.8); Eosinophils % 1.6 %; Hematocrit 43.5 % (36-47); Lymphocytes # 1.4 10^3/uL (0.8-4.8); Lymphocytes % 10.8 %; Mean Corpuscular HGB Conc 31.5 g/dL (30-55); Mean Corpuscular Hemoglobin 29.1 pg (27-33); Mean Corpuscular Volume 92.4 fl (85-98); Mean Platelet Volume 11.2 fL (7.4-10.4); Monocytes # 0.9 10^3/uL (0.2-0.9); Monocytes % 6.6 %; Neutrophils # 10.65 10^3/uL (1.8-7.7); Neutrophils % 80.1 %; Nucleated Red Blood Cells % 0 %; Platelet Count 176 10^3/cmm (157-399); Red Blood Count 4.71 10^6/uL (3.85-5.65); Red Cell Distribution Width 12.5 % (12.1-15.1); White Blood Count 13.29 10^3/uL (3.29-11.43)
[2024-11-01 22:40] LABS: INR 0.92 (0.8-1.2)
[2024-11-01 22:44] LABS: Alanine Aminotransferase 22 U/L (0-33); Albumin Level 4.5 g/dL (3.5-5.2); Alkaline Phosphatase 104 U/L (35-105); Anion Gap 14.5 (5-19); Aspartate Amino Transferase 31 U/L (0-32); Blood Urea Nitrogen 21 mg/dL (8-23); Calcium 9.5 mg/dL (8.5-10.5); Carbon Dioxide 25 mmol/L (22-29); Chloride 107 mmol/L (98-107); Creatinine Clr Calc Pharmacy 56.7209; Globulin 2.5 g/dL (1.3-4.6); Glucose 113 mg/dL (65-115); Osmolality Calculated 298 mOsm/kg (285-295); Potassium 4.5 mmol/L (3.5-5.1); Sodium 142 mmol/L (136-145); Total Bilirubin 0.3 mg/dL (0.15-1.2)
== END 2024-11-01 22:52 | disposition admitted as inpatient to this hospital (09) ==
PROVIDERS: Emergency Provider Emergency Medicine; PCP Family Medicine
DX: S82.142A Displaced bicondylar fracture of left tibia, initial encounter for closed fracture (principal); W19.XXXA Unspecified fall, initial encounter; Z79.82 Long term (current) use of aspirin
CPT/HCPCS: 29530; 36415; 73562; 80053; 85025; 85610; 96374; 99284; J2270

== ENCOUNTER 2025-02-16 13:49 | Outpatient (RCR) | payer MEDICARE, SELFPAY ==
[2023-07-24 10:03] VITALS: BP 153/80; BMI 25.4
== END 2025-03-12 23:59 | disposition home or self-care (01) ==
LOC: SPT 13:49
PROVIDERS: Visit Provider Orthopaedic Surgery
DX: S72.002D Fracture of unspecified part of neck of left femur, subsequent encounter for closed fracture with routine healing (principal); S72.012D Unspecified intracapsular fracture of left femur, subsequent encounter for closed fracture with routine healing; S72.009D Fracture of unspecified part of neck of unspecified femur, subsequent encounter for closed fracture with routine healing; X58.XXXD Exposure to other specified factors, subsequent encounter
CPT/HCPCS: 97110; 97161

== ENCOUNTER 2025-03-13 05:00 | Outpatient (RCR) | payer MEDICARE, SELFPAY ==
[2023-07-24 10:03] VITALS: BP 153/80; BMI 25.4
== END 2025-04-03 09:40 | disposition home or self-care (01) ==
LOC: SPT 05:00
PROVIDERS: Visit Provider Orthopaedic Surgery
DX: S72.002D Fracture of unspecified part of neck of left femur, subsequent encounter for closed fracture with routine healing (principal); X58.XXXD Exposure to other specified factors, subsequent encounter
CPT/HCPCS: 97110

== ENCOUNTER → 2025-06-26 13:44 | Outpatient (BNVA) | payer MEDICARE, SELFPAY ==
[2023-07-24 10:03] VITALS: BP 153/80; BMI 25.4
== END ==
PROVIDERS: Visit Provider Nurse Practitioner
DX: M70.62 Trochanteric bursitis, left hip (principal); Z96.642 Presence of left artificial hip joint
CPT/HCPCS: 73502; 99214